=== PATIENT | female | born 1960 | race American Indian/Alaskan Native ===

== ENCOUNTER 2018-03-28 12:29 | Inpatient (IN) | payer OTHER ==
[2018-03-28] MEDS ORDERED: NACL 0.9% 1000 ML 1,000 ML IV ONE (14:00)
--- NOTE | 2018-03-28 14:00 | Emergency Department Report ---
Blank Doc - Documentation Documentation: Patient is a 57-year-old female who states that she's had 5 episodes of watery diarrhea since early this morning. Patient says diarrhea since slowed and there is no abdominal pain at this time however the patient states that she just feels weak and fatigued at this point. Brief physical exam patient has no bowel tenderness has normal bowel sounds. Patient blood pressure was borderline for this patient before should be moved to a treatment room 5 fluids and eletrolytes to be checked.
--- NOTE | 2018-03-28 14:35 | Emergency Department Report ---
ED N/V/D HPI - General Chief complaint: Nausea/Vomiting/Diarrhea Stated complaint: DIARRHEA Time Seen by Provider: 03/28/18 13:51 Source: patient, EMS Mode of arrival: Wheelchair Limitations: No Limitations - History of Present Illness Initial comments: Patient is a 57-year-old female who states that she's had 5 episodes of watery diarrhea since early this morning. Patient says diarrhea since slowed and there is no abdominal pain at this time however the patient states that she just feels weak and fatigued at this point. Brief physical exam patient has no bowel tenderness has normal bowel sounds. Denies any nausea or vomiting. Patient says she has lost 10 pounds for the last 1 month.. Patient family reported the patient is having personal issues at home and that she passed out and one of family member found her. Family members request placement for patient because they said that the family is that she does live alone with they are also very sick and cannot take care of her anymore. Patient is 57 and looks 20 years older than her stated age. Patient reports that she is having weakness but denies any pain. She denies any headache but reports dizziness MD complaint: diarrhea Onset/Timin -: days(s) Description of Diarrhea: water Associated Abdominal Pain: No Radiation: none Pain Scale: 0 Context: other (unknown) Associated Symptoms: weakness, other (dizziness). denies: myalgias, chest pain , cough, diaphoresis, fever/chills, headaches, loss of appetite, malaise, nausea /vomiting, rash, dysuria, shortness of breath, syncope - Related Data Home Medications Medication Instructions Recorded Confirmed Last Taken Hydrochlorothiazide [HCTZ] 12.5 mg PO 05/20/13 05/20/13 Unknown Previous Rx's Medication Instructions Recorded Last Taken Type Aspirin [Aspirin TAB] 325 mg PO QDAY #30 tablet 05/24/13 Unknown Rx Hydrochlorothiazide [HCTZ] 12.5 mg PO QDAY #30 capsule 05/24/13 Unknown Rx Lisinopril [Zestril TAB] 10 mg PO QDAY #30 tablet 05/24/13 Unknown Rx Simvastatin [Zocor TAB] 20 mg PO QHS #30 tablet 05/24/13 Unknown Rx Allergies Allergy/AdvReac Type Severity Reaction Status Date / Time No Known Allergies Allergy Unverified 05/20/13 15:37 ED Review of Systems ROS: Stated complaint: DIARRHEA Other details as noted in HPI Constitutional: weakness. denies: chills, fever Eyes: denies: eye pain, eye discharge, vision change ENT: denies: ear pain, throat pain, dental pain, hearing loss, epistaxis, congestion Respiratory: denies: cough, shortness of breath, SOB with exertion, SOB at rest , stridor, wheezing Cardiovascular: denies: chest pain, palpitations, dyspnea on exertion, edema, syncope, paroxysmal nocturnal dyspnea Gastrointestinal: diarrhea. denies: abdominal pain, nausea, vomiting, constipation, hematemesis, melena, hematochezia Genitourinary: denies: urgency, dysuria, frequency, hematuria, discharge Musculoskeletal: denies: back pain, joint swelling, arthralgia, myalgia Skin: denies: rash Neurological: weakness, other (dizziness). denies: headache, numbness, paresthesias, confusion, abnormal gait ED Past Medical Hx - Past Medical History Previous Medical History?: Yes Hx Hypertension: Yes Hx CVA: Yes (left leg weakness,uses walker) Hx Congestive Heart Failure: No Hx Diabetes: No Hx Asthma: No Hx COPD: No - Surgical History Past Surgical History?: No - Family History Family history: hypertension - Social History Smoking Status: Current Every Day Smoker Substance Use Type: None - Medications Home Medications: Home Medications Medication Instructions Recorded Confirmed Last Taken Type Hydrochlorothiazide [HCTZ] 12.5 mg PO 05/20/13 05/20/13 Unknown History Aspirin [Aspirin TAB] 325 mg PO QDAY #30 tablet 05/24/13 Unknown Rx Hydrochlorothiazide [HCTZ] 12.5 mg PO QDAY #30 capsule 05/24/13 Unknown Rx Lisinopril [Zestril TAB] 10 mg PO QDAY #30 tablet 05/24/13 Unknown Rx Simvastatin [Zocor TAB] 20 mg PO QHS #30 tablet 05/24/13 Unknown Rx ED Physical Exam - General Limitations: No Limitations General appearance: alert, in no apparent distress - Head Head exam: Present: atraumatic, normocephalic, normal inspection - Eye Eye exam: Present: normal appearance, PERRL, EOMI. Absent: nystagmus, periorbital swelling, periorbital tenderness Pupils: Present: normal accommodation - ENT ENT exam: Present: normal exam, normal orophraynx, mucous membranes dry, TM's normal bilaterally, normal external ear exam. Absent: mucous membranes moist - Neck Neck exam: Present: normal inspection, full ROM, other (no C-spine tenderness). Absent: tenderness, meningismus, lymphadenopathy, thyromegaly - Respiratory Respiratory exam: Present: normal lung sounds bilaterally. Absent: respiratory distress, chest wall tenderness - Cardiovascular Cardiovascular Exam: Present: regular rate, normal rhythm, normal heart sounds. Absent: systolic murmur, diastolic murmur - GI/Abdominal GI/Abdominal exam: Present: soft, normal bowel sounds. Absent: distended, tenderness, guarding, rebound, rigid, organomegaly, mass, bruit, pulsatile mass , hernia - Extremities Exam Extremities exam: Present: normal inspection, full ROM, normal capillary refill , other (No cce. + 2 pulses in all extremities, no neurovascular compromise). Absent: tenderness, pedal edema, joint swelling, calf tenderness - Back Exam Back exam: Present: normal inspection, full ROM, other (patient able to ambulate with assistance). Absent: tenderness, CVA tenderness (R), CVA tenderness (L), muscle spasm, paraspinal tenderness, vertebral tenderness, rash noted - Neurological Exam Neurological exam: Present: alert, oriented X3, abnormal gait (patient would have normal gait), reflexes normal. Absent: motor sensory deficit - Expanded Neurological Exam Expanded Neurological exam: Absent: innattentive, memory loss-remote event, memory loss- recent event, ataxia, receptive aphasia, expressive aphasia, total aphasia, tremor, protecting the airway, other Patient oriented to: Present: person, place, time Speech: Present: fluid speech Cranial nerves: EOM's Intact: Normal, Gag Reflex: Normal, Tongue Deviation: Normal, Nystagmus: Normal, Facial Sensation: Normal Cerebellar function: Romberg: Normal Upper motor neuron: Pronator Drift: Abnormal Right, Abnormal Left, Sensory Extinction: Normal Sensory exam: Upper Extremity Light Touch: Normal, Upper Extremity Temperature: Normal, UE 2 Point Discrimination: Normal, Lower Extremity Light Touch: Normal, Lower Extremity Temperature: Normal, LE 2 Point Discrimination: Normal Motor strength exam: RUE: 4, LUE: 4, RLE: 4, LLE: 4 DTR: bicep (R): 2+, bicep (L): 2+, tricep (R): 2+, tricep (L): 2+, knee (R): 2+ , knee (L): 2+, ankle (R): 2+, ankle (L): 2+ Best Eye Response (Lenox): (4) open spontaneously Best Motor Response (Lenox): (6) obeys commands Best Verbal Response (Lenox): (5) oriented Shana Total: 15 - Psychiatric Psychiatric exam: Present: normal affect, normal mood - Skin Skin exam: Present: warm, intact, other (skin turgor poor) ED Course Vital Signs 03/28/18 12:37 Temperature 97.9 F Pulse Rate 78 Respiratory 18 Rate Blood Pressure 101/65 O2 Sat by Pulse 99 Oximetry - Reevaluation(s) Reevaluation #1: 03/28/18 18:47 Patient given IV fluid normal saline 1 L and emergency room. Her lab work shows that she has increased white blood cell, shift into the left suggest bacterial, urinalysis positive for infection and cultures are pending. Chemistry with acute renal failure. Blood cultures and urine cultures sent and tendon patient was started D5 half normal saline at 125 an hour. Vital signs are stable, she is a febrile. She has had 2 diarrhea stools while in the emergency room. Patient and family reported that they cannot take care of her at home and she needs some more of the ago also field case manager came and spoke with family and patient and patient agree to go to a nursing home but there is no nursing home available at present. Patient will be admitted to the hospital for acute renal failure, dehydration, dizziness and urinary tract infection. Patient is very frail and weak and needed assistance tablet to the bathroom. Her other family member says that they are her children was very upset because the decision was made to send patient to homeless nursing home without discussing with them. They said that patient will not be going to homeless and that they will find somewhere for her to go. I discussed the patient and family that she will be admitted due to lab findings. She is in agreement.. Reevaluation #2: 03/28/18 19:39 Patient started on D5 half-normal saline. She is delayed and CT scan of the brain without contrast. She stably no acute distress. Reevaluation #3: 03/28/18 20:52 Patient to be admitted. I spoke with Dr. Sherice Rendon was the hospitalist who is assuming care of the patient. She is stable. ED Medical Decision Making - Lab Data Result diagrams: 03/28/18 15:07 03/28/18 15:07 Lab Results 03/28/18 03/28/18 03/28/18 Range/Units 14:43 15:07 15:07 WBC 15.8 H (4.5-11.0) K/mm3 RBC 5.13 H (3.65-5.03) M/mm3 Hgb 15.0 H (10.1-14.3) gm/dl Hct 45.2 H (30.3-42.9) % MCV 88 (79-97) fl MCH 29 (28-32) pg MCHC 33 (30-34) % RDW 14.8 (13.2-15.2) % Plt Count 227 (140-440) K/mm3 Add Manual Diff Complete Total Counted 100 Seg Neutrophils % C[employer] P[employer] Picker Seg Neuts % (Manual) 90.0 H (40.0-70.0) % Band Neutrophils % 0 % Lymphocytes % (Manual) 7.0 L (13.4-35.0) % Reactive Lymphs % (Man) 0 % Monocytes % (Manual) 3.0 (0.0-7.3) % Eosinophils % (Manual) 0 (0.0-4.3) % Basophils % (Manual) 0 (0.0-1.8) % Metamyelocytes % 0 % Myelocytes % 0 % Promyelocytes % 0 % Blast Cells % 0 % Nucleated RBC % Not Reportable Seg Neutrophils # Man 14.2 H (1.8-7.7) K/mm3 Band Neutrophils # 0.0 K/mm3 Lymphocytes # (Manual) 1.1 L (1.2-5.4) K/mm3 Abs React Lymphs (Man) 0.0 K/mm3 Monocytes # (Manual) 0.5 (0.0-0.8) K/mm3 Eosinophils # (Manual) 0.0 (0.0-0.4) K/mm3 Basophils # (Manual) 0.0 (0.0-0.1) K/mm3 Metamyelocytes # 0.0 K/mm3 Myelocytes # 0.0 K/mm3 Promyelocytes # 0.0 K/mm3 Blast Cells # 0.0 K/mm3 WBC Morphology Not Reportable Hypersegmented Neuts Not Reportable Hyposegmented Neuts Not Reportable Hypogranular Neuts Not Reportable Smudge Cells Not Reportable Toxic Granulation Not Reportable Toxic Vacuolation Not Reportable Dohle Bodies Not Reportable Pelger-Huet Anomaly Not Reportable Christina Rods Not Reportable Platelet Estimate Not Reportable Clumped Platelets Not Reportable Plt Clumps, EDTA Not Reportable Large Platelets Not Reportable Giant Platelets Not Reportable Platelet Satelliting Not Reportable Plt Morphology Comment Not Reportable RBC Morphology Normal Dimorphic RBCs Not Reportable Polychromasia Not Reportable Hypochromasia Not Reportable Poikilocytosis Not Reportable Anisocytosis Not Reportable Microcytosis Not Reportable Macrocytosis Not Reportable Spherocytes Not Reportable Pappenheimer Bodies Not Reportable Sickle Cells Not Reportable Target Cells Not Reportable Tear Drop Cells Not Reportable Ovalocytes Not Reportable Helmet Cells Not Reportable Tapia-Aledo Bodies Not Reportable [place] Rings Not Reportable Yen Cells Not Reportable Bite Cells Not Reportable Crenated Cell Not Reportable Elliptocytes Not Reportable Acanthocytes (Spur) Not Reportable Rouleaux Not Reportable Hemoglobin C Crystals Not Reportable Schistocytes Not Reportable Malaria parasites Not Reportable Dez Bodies Not Reportable Hem Pathologist Commnt No Sodium 141 (137-145) mmol/L Potassium 4.6 (3.6-5.0) mmol/L Chloride 102.5 (98-107) mmol/L Carbon Dioxide 20 L (22-30) mmol/L Anion Gap 23 mmol/L BUN 31 H (7-17) mg/dL Creatinine 1.5 H (0.7-1.2) mg/dL Estimated GFR 43 ml/min BUN/Creatinine Ratio 21 % Glucose 113 H (65-100) mg/dL Calcium 9.2 (8.4-10.2) mg/dL Total Bilirubin 0.40 (0.1-1.2) mg/dL AST 27 (5-40) units/L ALT 16 (7-56) units/L Alkaline Phosphatase 54 (35-129) units/L Total Protein 6.8 (6.3-8.2) g/dL Albumin 4.1 (3.9-5) g/dL Albumin/Globulin Ratio 1.5 % Lipase (13-60) units/L Urine Color Lisa (Yellow) Urine Turbidity Cloudy (Clear) Urine pH 5.0 (5.0-7.0) Ur Specific Cl[place]son 1.017 (1.003-1.030) Urine Protein 30 mg/dl (Negative) mg/dL Urine Glucose (UA) Neg (Negative) mg/dL Urine Ketones Neg (Negative) mg/dL Urine Blood Sm (Negative) Urine Nitrite Neg (Negative) Urine Bilirubin Neg (Negative) Urine Urobilinogen 2.0 (<2.0) mg/dL Ur Leukocyte Esterase Sm (Negative) Urine WBC (Auto) 13.0 H (0.0-6.0) /HPF Urine RBC (Auto) 15.0 (0.0-6.0) /HPF U Epithel Cells (Auto) 2.0 (0-13.0) /HPF Urine Bacteria (Auto) 3+ (Negative) /HPF Hyaline Casts 1 /LPF Urine Mucus 1+ /HPF 03/28/18 Range/Units 15:07 WBC (4.5-11.0) K/mm3 RBC (3.65-5.03) M/mm3 Hgb (10.1-14.3) gm/dl Hct (30.3-42.9) % MCV (79-97) fl MCH (28-32) pg MCHC (30-34) % RDW (13.2-15.2) % Plt Count (140-440) K/mm3 Add Manual Diff Total Counted Seg Neutrophils % Seg Neuts % (Manual) (40.0-70.0) % Band Neutrophils % % Lymphocytes % (Manual) (13.4-35.0) % Reactive Lymphs % (Man) % Monocytes % (Manual) (0.0-7.3) % Eosinophils % (Manual) (0.0-4.3) % Basophils % (Manual) (0.0-1.8) % Metamyelocytes % % Myelocytes % % Promyelocytes % % Blast Cells % % Nucleated RBC % Seg Neutrophils # Man (1.8-7.7) K/mm3 Band Neutrophils # K/mm3 Lymphocytes # (Manual) (1.2-5.4) K/mm3 Abs React Lymphs (Man) K/mm3 Monocytes # (Manual) (0.0-0.8) K/mm3 Eosinophils # (Manual) (0.0-0.4) K/mm3 Basophils # (Manual) (0.0-0.1) K/mm3 Metamyelocytes # K/mm3 Myelocytes # K/mm3 Promyelocytes # K/mm3 Blast Cells # K/mm3 WBC Morphology Hypersegmented Neuts Hyposegmented Neuts Hypogranular Neuts Smudge Cells Toxic Granulation Toxic Vacuolation Dohle Bodies Pelger-Huet Anomaly Christina Rods Platelet Estimate Clumped Platelets Plt Clumps, EDTA Large Platelets Giant Platelets Platelet Satelliting Plt Morphology Comment RBC Morphology Dimorphic RBCs Polychromasia Hypochromasia Poikilocytosis Anisocytosis Microcytosis Macrocytosis Spherocytes Pappenheimer Bodies Sickle Cells Target Cells Tear Drop Cells Ovalocytes Helmet Cells Tapia-Aledo Bodies [place] Rings [place] Cells Bite Cells Crenated Cell Elliptocytes Acanthocytes (Spur) Rouleaux Hemoglobin C Crystals Schistocytes Malaria parasites Dez Bodies Hem Pathologist Commnt Sodium (137-145) mmol/L Potassium (3.6-5.0) mmol/L Chloride (98-107) mmol/L Carbon Dioxide (22-30) mmol/L Anion Gap mmol/L BUN (7-17) mg/dL Creatinine (0.7-1.2) mg/dL Estimated GFR ml/min BUN/Creatinine Ratio % Glucose (65-100) mg/dL Calcium (8.4-10.2) mg/dL Total Bilirubin (0.1-1.2) mg/dL AST (5-40) units/L ALT (7-56) units/L Alkaline Phosphatase (35-129) units/L Total Protein (6.3-8.2) g/dL Albumin (3.9-5) g/dL Albumin/Globulin Ratio % Lipase 24 (13-60) units/L Urine Color (Yellow) Urine Turbidity (Clear) Urine pH (5.0-7.0) Ur Specific Cl[place] (1.003-1.030) Urine Protein (Negative) mg/dL Urine Glucose (UA) (Negative) mg/dL Urine Ketones (Negative) mg/dL Urine Blood (Negative) Urine Nitrite (Negative) Urine Bilirubin (Negative) Urine Urobilinogen (<2.0) mg/dL Ur Leukocyte Esterase (Negative) Urine WBC (Auto) (0.0-6.0) /HPF Urine RBC (Auto) (0.0-6.0) /HPF U Epithel Cells (Auto) (0-13.0) /HPF Urine Bacteria (Auto) (Negative) /HPF Hyaline Casts /LPF Urine Mucus /HPF Urine culture sent Blood culture sent - EKG Data -: EKG Interpreted by Me (by Dr. Bel Miller) EKG shows normal: sinus rhythm Rate: normal (84 bpm) - EKG Data Interpretation: no acute changes, normal EKG - Radiology Data Radiology results: report reviewed CT scan of head and brain without contrast dictated by radiologist's report reviewed by myself. There are no acute findings. Skull and scalp are normal. Sinuses are normal. Ventricles and subarachnoid spaces with prominent consistent with cerebral as 3 slightly advanced for patient age. She also has old lacunar infarct involving bilateral basal ganglia and bilateral parietal periventricular white matter. An acute intra-axial or extra-axial hemorrhage is not identified no mass effect. Moderate to severe degree nonspecific white matter hypodensity Patient: TAIWO ARCEO MR#: [id number] : 1960 Acct:[id number] Age/Sex: 57 / F ADM Date: 03/28/18 Loc: ED Attending Dr: Ordering Physician: JEANNINE MARTINEZ Date of Service: 03/28/18 Procedure(s): CT head/brain wo con Accession Number(s): [id number] cc: JEANNINE MARTINEZ FINAL REPORT PROCEDURE: CT HEAD/BRAIN WO CON TECHNIQUE: Computerized tomography of the head was performed without contrast material. HISTORY: dizziness COMPARISON: No prior studies are available for comparison. FINDINGS: Skull and scalp: Normal. Paranasal sinuses: Normal. Ventricles and subarachnoid spaces: Are prominent consistent with cerebral atrophy slightly advanced for patient's age.. Cerebrum: Old lacunar infarcts are noted involving bilateral basal ganglia and bilateral parietal periventricular white matter. An acute intra-axial or extra-axial hemorrhage is not identified. There is no mass effect. Moderate to severe degree nonspecific cerebral white matter hypodensity is noted. The. Cerebellum and brainstem: Old lacunar infarcts are noted involving naeem and right cerebellar hemisphere... Vasculature: Atherosclerotic calcification is noted involving bilateral internal carotid and vertebral arteries.. Comments: None. IMPRESSION: No acute intracranial abnormality Cerebral atrophy advanced for patient's age Old lacunar infarcts bilateral basal ganglia, bilateral parietal periventricular white matter, naeem and right cerebellar hemisphere. 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 A neuro degenerative disorder cannot be excluded. Transcribed By: [facility] Dictated By: ELDON RUSS Electronically Authenticated By: ELDON RUSS Signed Date/Time: 03/28/182012 DD/ 12 TD/TT: 03/28/182012 - Medical Decision Making This is a 57-year-old female that was brought to the hospital by her family reports that she had diarrhea 5 and that she was found by family member in the bathroom passed out. Family member which is her cousin says that the patient is living at home with other family members are too sick to take here for so they wanted her to be placed in a [facility]. hotel service manager called and saw patient's and it was decided the patient will go to nursing home but patient other family member came in and sat because they said nobody spoke to them about it and she is not B going to nursing home. Patient denies any nausea or vomiting and she reports that she started feeling dizzy and weakness. She has a history of CVA. Patient denies any shortness of breath. Denies any numbness or tingling to extremities. Denies any neck pain or stiffness. Patient was screened by Dr. Miller and orders placed. I examined patient and she is frail. She is neurologically intact and her neck and back exam is normal. Patient lungs and heart are normal. He had lab work done which shows that she had CBC which showed elevated white count which shift into the left, urinalysis positive for white cell, leukocyte esterase and bacteria. Her chemistry is positive for acute renal failure otherwise stable. Lipase are normal. Blood cultures sent and urine culture sent. Patient received 1 L of normal saline emergency room. She was started on Rocephin 1 g IM and additional D5 half-normal saline at 125 mL an hour. She had 2 loose stool while she was in an emergency room. Patient and family given results of CBC, CMP, urinalysis, diagnosis and treatment plan and the patient will be admitted for acute renal failure, elevated white count, urinary tract infection, dehydration and dizziness and weakness. Patient had a CT scan of the head and brain that was dictated by radiologist report reviewed by myself. She has old infarct but no acute abdomen with the end this is also related to patient and family. Assessment/plan dehydration-vital signs are stable she is afebrile and patient is on IV fluid. Diarrhea-she had 2 episodes of diarrhea and emergency room. She is tolerating oral liquids well. D5 half normal saline started at 1 25 mL an hour Acute cystitis-patient started on Rocephin 1 g IV Leukocytosis-on antibiotic syncope and dizziness-CT scan of the head and brain showed no acute processes but old infarct. Acute renal insufficiency -with BUN and creatinine elevated-patient received an IV fluid and she is to be admitted by hospitalist. I spoke with Dr. Sherice Rendon who accepted patient. Patient is stable at present and her family that her side. She is aware of decision to admit and she agrees with this. Family to speak with case management tomorrow regarding patient disposition when she leaves hospital. Family decided that they will take the patient in. These are different family members from the ones that were eating earlier and spoke the case management. Patient is stable - Differential Diagnosis intracranial versus extracranial abnormality, dehydration, bacterial infect Critical care attestation.: If time is entered above; I have spent that time in minutes in the direct care of this critically ill patient, excluding procedure time. ED Disposition Clinical Impression: Acute renal insufficiency, Dizziness, Weakness, Dehydration Diarrhea Qualifiers: Diarrhea type: unspecified type Qualified Code(s): R19.7 - Diarrhea, unspecified Leukocytosis Qualifiers: Leukocytosis type: unspecified Qualified Code(s): D72.829 - Elevated white blood cell count, unspecified Acute cystitis Qualifiers: Hematuria presence: without hematuria Qualified Code(s): N30.00 - Acute cystitis without hematuria Syncope Qualifiers: Syncope type: unspecified Qualified Code(s): R55 - Syncope and collapse Disposition: -09 OP ADMIT IP TO THIS HOSP Is pt being admited?: No Condition: Stable Instructions: Syncope (ED) Referrals: PRIMARY CARE, [Primary Care Provider] - 3-5 Days
[2018-03-28 14:58] LABS: Bacteria,Urine 3+ /HPF (Negative); Bilirubin,Urine NEG (Negative); Blood,Urine SM (Negative); Color,Urine Amber (Yellow); Hyaline Casts,Urine 1 /LPF; Mucus,Urine 1+ /HPF
[2018-03-28 15:28] LABS: Hematocrit 45.2 % (30.3-42.9); Mean Corpuscular HGB Conc 33 % (30-34); Mean Corpuscular Hemoglobin 29 pg (28-32); Mean Corpuscular Volume 88 fl (79-97); Platelet Count 227 K/mm3 (140-440); Red Blood Count 5.13 M/mm3 (3.65-5.03); Red Cell Distribution Width 14.8 % (13.2-15.2)
[2018-03-28 15:57] LABS: Albumin 4.1 g/dL (3.9-5); Calcium 9.2 mg/dL (8.4-10.2)
[2018-03-28 16:07] LABS: Total Cells Counted 100
[2018-03-28 16:08] LABS: Basophils % (Manual) 0 % (0.0-1.8); Eosinophils % (Manual) 0 % (0.0-4.3); RBC Morphology Normal
[2018-03-28] MEDS ORDERED: D5/0.45NS 1,000 ML IV SCH (17:00)
[2018-03-28] MEDS ORDERED: ROCEPHIN/NS 1 GM/50 ML 1 GM/50 ML BAG IV ONE (19:00)
--- NOTE | 2018-03-28 20:20 | Cat Scan Report ---
FINAL REPORT PROCEDURE: CT HEAD/BRAIN WO CON TECHNIQUE: Computerized tomography of the head was performed without contrast material. HISTORY: dizziness COMPARISON: No prior studies are available for comparison. FINDINGS: Skull and scalp: Normal. Paranasal sinuses: Normal. Ventricles and subarachnoid spaces: Are prominent consistent with cerebral atrophy slightly advanced for patient's age.. Cerebrum: Old lacunar infarcts are noted involving bilateral basal ganglia and bilateral parietal periventricular white matter. An acute intra-axial or extra-axial hemorrhage is not identified. There is no mass effect. Moderate to severe degree nonspecific cerebral white matter hypodensity is noted. The. Cerebellum and brainstem: Old lacunar infarcts are noted involving naeem and right cerebellar hemisphere... Vasculature: Atherosclerotic calcification is noted involving bilateral internal carotid and vertebral arteries.. Comments: None. IMPRESSION: No acute intracranial abnormality Cerebral atrophy advanced for patient's age Old lacunar infarcts bilateral basal ganglia, bilateral parietal periventricular white matter, naeem and right cerebellar hemisphere. 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 A neuro degenerative disorder cannot be excluded.
[2018-03-28] MEDS: NACL 0.45% 1000 ML 1,000 ML IV SCH (20:40)
[2018-03-28] MEDS ORDERED: SODIUM CHLORIDE FLUSH SYRINGE 10 ML IV PRN (20:47)
[2018-03-28] MEDS ORDERED: TYLENOL PO PRN (20:47)
[2018-03-28] MEDS ORDERED: ZOFRAN IV PRN (20:47)
--- NOTE | 2018-03-28 20:52 | History and Physical Report ---
History of Present Illness Date of examination: 03/28/18 History of present illness: 57-year-old woman with a history of hypertension, hyperlipidemia comes emergency room because today while she was having a bowel movement she had a syncopal episode, she is unclear how long she passed out. Patient complains of having diarrhea for 2 weeks, 5 times a day. Denies fever, chills, recent antibiotic, travel, sick contacts Review of systems Constitutional: no weight loss, chills, fever Ears, eyes, nose, mouth and throat: no nasal congestion, no nasal discharge, no sinus pressure, no vision change, no red eye. Neck: No neck pain or rigidity. Cardiovascular: no chest pain, palpitations Respiratory: no cough, shortness of breath Gastrointestinal: no abdominal pain hematochezia Genitourinary : + frequency , no hematuria Musculoskeletal: no joint swelling or muscle ache Integumentary: no rash, no pruritis Neurological: no parathesias, no numbness, no focal weakness Endocrine: no cold or heat intolerance, no polyuria or polydipsia Hematologic/Lymphatic: no easy bruising, no easy bleeding, no gland swelling Allergic/Immunologic: no urticaria, no angioedema. PAST MEDICAL HISTORY: hypertension, hyperlipidemia PAST SURGICAL HISTORY: None SOCIAL HISTORY: No alcohol, no drugs, smoke 2 packs a day FAMILY HISTORY: Hypertension Medications and Allergies Allergies Allergy/AdvReac Type Severity Reaction Status Date / Time No Known Allergies Allergy Unverified 05/20/13 15:37 Home Medications Medication Instructions Recorded Confirmed Last Taken Type Hydrochlorothiazide [HCTZ] 12.5 mg PO 05/20/13 05/20/13 Unknown History Aspirin [Aspirin TAB] 325 mg PO QDAY #30 tablet 05/24/13 Unknown Rx Hydrochlorothiazide [HCTZ] 12.5 mg PO QDAY #30 capsule 05/24/13 Unknown Rx Lisinopril [Zestril TAB] 10 mg PO QDAY #30 tablet 05/24/13 Unknown Rx Simvastatin [Zocor TAB] 20 mg PO QHS #30 tablet 05/24/13 Unknown Rx Active Meds: Active Medications Acetaminophen (Tylenol) 650 mg PO Q4H PRN PRN Reason: Pain MILD(1-3)/Fever >100.5/ROSE Enoxaparin Sodium (Lovenox) 30 mg SUB-Q QDAY FREYA Dextrose/Sodium Chloride (D5/0.45ns) 1,000 mls @ 125 mls/hr IV DIRECT FREYA Sodium Chloride (Nacl 0.45% 1000 Ml) 1,000 mls @ 125 mls/hr IV DIRECT FREYA Ondansetron HCl (Zofran) 4 mg IV Q8H PRN PRN Reason: Nausea And Vomiting Sodium Chloride (Sodium Chloride Flush Syringe 10 Ml) 10 ml IV BID FREYA Sodium Chloride (Sodium Chloride Flush Syringe 10 Ml) 10 ml IV PRN PRN PRN Reason: LINE FLUSH Exam - Physical Exam Narrative exam: Gen. appearance: Patient lying in bed, no apparent distress HEENT: Normocephalic, atraumatic, pupils equally round and reactive to light, extraocular movement intact, and no sclericterus,. No JVD or thyromegaly or nodule,neck supple, no carotid bruit ,mucous membranes dry, no exudate or erythema Heart: S1, S2, regular rate and rhythm Lungs: Clear bilaterally, breathing comfortable Abdomen: Positive bowel sounds, non-tender, nondistended, no organomegaly Extremity:no edema cyanosis, clubbing Skin: no rash, dry, warm Neuro: Oriented 3, cranial nerves II-12 intact, speech is fluent, motor and sensory intact - Constitutional Vitals: Temp Pulse Resp BP Pulse Ox 97.9 F 78 18 101/65 99 03/28/18 12:37 03/28/18 12:37 03/28/18 12:37 03/28/18 12:37 03/28/18 12:37 Results - Labs CBC & Chem 7: 03/28/18 15:07 03/28/18 15:07 Labs: Abnormal lab results 03/28/18 03/28/18 03/28/18 Range/Units 14:43 15:07 15:07 WBC 15.8 H (4.5-11.0) K/mm3 RBC 5.13 H (3.65-5.03) M/mm3 Hgb 15.0 H (10.1-14.3) gm/dl Hct 45.2 H (30.3-42.9) % Seg Neuts % (Manual) 90.0 H (40.0-70.0) % Lymphocytes % (Manual) 7.0 L (13.4-35.0) % Seg Neutrophils # Man 14.2 H (1.8-7.7) K/mm3 Lymphocytes # (Manual) 1.1 L (1.2-5.4) K/mm3 Carbon Dioxide 20 L (22-30) mmol/L BUN 31 H (7-17) mg/dL Creatinine 1.5 H (0.7-1.2) mg/dL Glucose 113 H (65-100) mg/dL Urine WBC (Auto) 13.0 H (0.0-6.0) /HPF - Imaging and Cardiology EKG: report reviewed CT Scan - head: report reviewed Assessment and Plan Assessment Acute renal failure secondary to diarrhea Syncope most likely vasovagal Diarrhea UTI History of hypertension now relative hypotension Hyperlipidemia Plan Admit to medicine Start IV fluids, IV Rocephin Obtain stool culture, urine culture Cardiac enzymes, carotid Doppler, echo, d-dimer,cxr DVT prophylaxis] Addendum elevated d-dimer, check v/q
[2018-03-28 21:31] LABS: Creatine Kinase MB 1.3 ng/mL (0.0-4.0)
--- NOTE | 2018-03-28 22:37 | XRay Report ---
FINAL REPORT EXAM: XR CHEST 1V AP HISTORY: syncope TECHNIQUE: AP portable view of the chest PRIORS: None. FINDINGS: Lines, tubes, and devices: N/A Lungs and pleura: Trachea is normal in position. Lungs are clear of infiltrate, pleural effusion, vascular congestion, or pneumothorax. Cardiomediastinal silhouette: Cardiac and mediastinal silhouettes are unremarkable. Other: Bony structures are intact. IMPRESSION: No acute cardiopulmonary process seen.
[2018-03-28] MEDS: PRAVACHOL PO SCH (22:41)
[2018-03-28] MEDS: SODIUM CHLORIDE FLUSH SYRINGE 10 ML IV SCH (22:41)
[2018-03-29 03:15] LABS: Basophils # (Auto) 0.1 K/mm3 (0.0-0.1); Basophils % (Auto) 0.6 % (0.0-1.8); Eosinophils # (Auto) 0.1 K/mm3 (0.0-0.4); Eosinophils % (Auto) 0.8 % (0.0-4.3); Hematocrit 39.4 % (30.3-42.9); Hemoglobin 13.2 gm/dl (10.1-14.3); Lymphocytes % (Auto) 18.7 % (13.4-35.0); Mean Corpuscular HGB Conc 34 % (30-34); Mean Corpuscular Hemoglobin 29 pg (28-32); Mean Corpuscular Volume 87 fl (79-97); Monocytes # (Auto) 0.6 K/mm3 (0.0-0.8); Monocytes % (Auto) 5.3 % (0.0-7.3); Platelet Count 183 K/mm3 (140-440); Red Blood Count 4.51 M/mm3 (3.65-5.03); Red Cell Distribution Width 14.7 % (13.2-15.2)
[2018-03-29 03:33] LABS: Creatine Kinase MB 3.2 ng/mL (0.0-4.0)
[2018-03-29 03:36] LABS: BUN/Creatinine Ratio 25; Blood Urea Nitrogen 28 mg/dL (7-17); Calcium 8.9 mg/dL (8.4-10.2); Hemolysis Index 82
[2018-03-29] MEDS: NACL 0.45% 1000 ML 1,000 ML IV SCH (05:48)
[2018-03-29] MEDS: LOVENOX SUB-Q SCH (10:47)
[2018-03-29] MEDS: ASPIRIN PO SCH (10:48)
[2018-03-29] MEDS: ROCEPHIN/NS 1 GM/50 ML 1 GM/50 ML BAG IV SCH (10:49)
--- NOTE | 2018-03-29 12:31 | Nuclear Medicine Report ---
LUNG SCAN, VENTILATION AND PERFUSION: History: Evaluate for PE, shortness of breath. Technique: 5mci of Tc99m MAA was infused for the perfusion images. 15mci XE 133 gas was inhaled for the ventilatory images. Correlation is made with a chest x-ray dated 03/28/18. Findings: Inhalation of Xenon gas demonstrates a normal distribution of the activity throughout both lungs. The wash out phases show mild retention of the radiotracer bilaterally consistent with mild COPD. After injection of Technetium 99m macroaggregated albumin gamma camera imaging of the lungs in multiple projections demonstrates normal pulmonary contours with a homogeneous distribution of activity. No focal areas of perfusion deficiency are identified. IMPRESSION: Low probability for pulmonary embolus. Findings compatible with COPD.
[2018-03-29] MEDS ORDERED: K-DUR PO ONE (12:54)
[2018-03-29] MEDS: SODIUM CHLORIDE FLUSH SYRINGE 10 ML IV SCH ×2 (13:27→21:53)
--- NOTE | 2018-03-29 16:41 | Discharge Summary ---
Providers - Providers Date of Admission: 03/28/18 20:47 Date of discharge: 03/29/18 Attending physician: ARIANNA HALL 03/28/18 15:43 Consult to Case Management [CONS] Routine Services Needed at Discharge: School Based Therapist Home Health Services Notified:: Torri Was contact made?: Yes If yes, spoke with:: Torri Time called:: 15:30 Primary care physician: RECREATION PROGRAMMER Hospitalization Condition: Fair Disposition: DC-01 TO HOME OR SELFCARE Core Measure Documentation - Palliative Care Palliative Care/ Comfort Measures: Not Applicable - Core Measures Any of the following diagnoses?: none Exam - Constitutional Vitals: Temp Pulse Resp BP Pulse Ox 97.8 F 63 16 154/93 99 03/29/18 15:58 03/29/18 15:58 03/29/18 15:58 03/29/18 15:58 03/29/18 15:58 Plan Activity: no restrictions Diet: low fat, low cholesterol, low salt Additional Instructions: 1. Follow up with PCP or [facility] in 1 week Follow up with: PRIMARY MD BEBE [Primary Care Provider] - 3-5 Days
--- NOTE | 2018-03-29 19:07 | Progress Note ---
Assessment and Plan Assessment and plan: Acute gastroenteritis. iv fluids Syncope due to dehydration. Urinary tract infection. started on Ceftriaxone Dehydration. started on iv fluids Hypertension. BP stable on Lisinopril FULL CODE STATUS History Interval history: diarrhea passed out at home Hospitalist Physical - Constitutional Vitals: Temp Pulse Resp BP Pulse Ox 97.8 F 63 16 154/93 99 03/29/18 15:58 03/29/18 15:58 03/29/18 15:58 03/29/18 15:58 03/29/18 15:58 General appearance: Present: no acute distress - EENT Eyes: Present: PERRL ENT: hearing intact - Neck Neck: Present: supple - Respiratory Respiratory effort: normal Respiratory: bilateral: CTA, negative: diminished, rales, rhonchi, wheezing - Cardiovascular Rhythm: regular Heart Sounds: Present: S1 & S2 (S1 and S2 reg, no murmurs, rubs or gallop) - Extremities Extremities: No edema - Abdominal General gastrointestinal: soft, non-tender, non-distended, normal bowel sounds - Integumentary Integumentary: Present: clear, warm, dry Results - Labs CBC & Chem 7: 03/29/18 02:54 03/29/18 02:54 Labs: Laboratory Last Values WBC 11.0 K/mm3 (4.5-11.0) 03/29/18 02:54 RBC 4.51 M/mm3 (3.65-5.03) 03/29/18 02:54 Hgb 13.2 gm/dl (10.1-14.3) 03/29/18 02:54 Hct 39.4 % (30.3-42.9) 03/29/18 02:54 MCV 87 fl (79-97) 03/29/18 02:54 MCH 29 pg (28-32) 03/29/18 02:54 MCHC 34 % (30-34) 03/29/18 02:54 RDW 14.7 % (13.2-15.2) 03/29/18 02:54 Plt Count 183 K/mm3 (140-440) 03/29/18 02:54 Lymph % (Auto) 18.7 % (13.4-35.0) 03/29/18 02:54 [place] % (Auto) 5.3 % (0.0-7.3) 03/29/18 02:54 Eos % (Auto) 0.8 % (0.0-4.3) 03/29/18 02:54 Baso % (Auto) 0.6 % (0.0-1.8) 03/29/18 02:54 Lymph # 2.0 K/mm3 (1.2-5.4) 03/29/18 02:54 [place] # 0.6 K/mm3 (0.0-0.8) 03/29/18 02:54 Eos # 0.1 K/mm3 (0.0-0.4) 03/29/18 02:54 Baso # 0.1 K/mm3 (0.0-0.1) 03/29/18 02:54 Add Manual Diff Complete 03/28/18 15:07 Total Counted 100 03/28/18 15:07 Seg Neutrophils % 74.6 % (40.0-70.0) H 03/29/18 02:54 Seg Neuts % (Manual) 90.0 % (40.0-70.0) H 03/28/18 15:07 Band Neutrophils % 0 % 03/28/18 15:07 Lymphocytes % (Manual) 7.0 % (13.4-35.0) L 03/28/18 15:07 Reactive Lymphs % (Man) 0 % 03/28/18 15:07 Monocytes % (Manual) 3.0 % (0.0-7.3) 03/28/18 15:07 Eosinophils % (Manual) 0 % (0.0-4.3) 03/28/18 15:07 Basophils % (Manual) 0 % (0.0-1.8) 03/28/18 15:07 Metamyelocytes % 0 % 03/28/18 15:07 Myelocytes % 0 % 03/28/18 15:07 Promyelocytes % 0 % 03/28/18 15:07 Blast Cells % 0 % 03/28/18 15:07 Nucleated RBC % Not Reportable 03/28/18 15:07 Seg Neutrophils # 8.2 K/mm3 (1.8-7.7) H 03/29/18 02:54 Seg Neutrophils # Man 14.2 K/mm3 (1.8-7.7) H 03/28/18 15:07 Band Neutrophils # 0.0 K/mm3 03/28/18 15:07 Lymphocytes # (Manual) 1.1 K/mm3 (1.2-5.4) L 03/28/18 15:07 Abs React Lymphs (Man) 0.0 K/mm3 03/28/18 15:07 Monocytes # (Manual) 0.5 K/mm3 (0.0-0.8) 03/28/18 15:07 Eosinophils # (Manual) 0.0 K/mm3 (0.0-0.4) 03/28/18 15:07 Basophils # (Manual) 0.0 K/mm3 (0.0-0.1) 03/28/18 15:07 Metamyelocytes # 0.0 K/mm3 03/28/18 15:07 Myelocytes # 0.0 K/mm3 03/28/18 15:07 Promyelocytes # 0.0 K/mm3 03/28/18 15:07 Blast Cells # 0.0 K/mm3 03/28/18 15:07 WBC Morphology Not Reportable 03/28/18 15:07 Hypersegmented Neuts Not Reportable 03/28/18 15:07 Hyposegmented Neuts Not Reportable 03/28/18 15:07 Hypogranular Neuts Not Reportable 03/28/18 15:07 Smudge Cells Not Reportable 03/28/18 15:07 Toxic Granulation Not Reportable 03/28/18 15:07 Toxic Vacuolation Not Reportable 03/28/18 15:07 Dohle Bodies Not Reportable 03/28/18 15:07 Pel[place]-Huet Anomaly Not Reportable 03/28/18 15:07 Christina Rods Not Reportable 03/28/18 15:07 Platelet Estimate Not Reportable 03/28/18 15:07 Clumped Platelets Not Reportable 03/28/18 15:07 Plt Clumps, EDTA Not Reportable 03/28/18 15:07 Large Platelets Not Reportable 03/28/18 15:07 Giant Platelets Not Reportable 03/28/18 15:07 Platelet Satelliting Not Reportable 03/28/18 15:07 Plt Morphology Comment Not Reportable 03/28/18 15:07 RBC Morphology Normal 03/28/18 15:07 Dimorphic RBCs Not Reportable 03/28/18 15:07 Polychromasia Not Reportable 03/28/18 15:07 Hypochromasia Not Reportable 03/28/18 15:07 Poikilocytosis Not Reportable 03/28/18 15:07 Anisocytosis Not Reportable 03/28/18 15:07 Microcytosis Not Reportable 03/28/18 15:07 Macrocytosis Not Reportable 03/28/18 15:07 Spherocytes Not Reportable 03/28/18 15:07 Pappenheimer Bodies Not Reportable 03/28/18 15:07 Sickle Cells Not Reportable 03/28/18 15:07 Target Cells Not Reportable 03/28/18 15:07 Tear Drop Cells Not Reportable 03/28/18 15:07 Ovalocytes Not Reportable 03/28/18 15:07 Helmet Cells Not Reportable 03/28/18 15:07 [place] Bodies Not Reportable 03/28/18 15:07 Likely Rings Not Reportable 03/28/18 15:07 Yen Cells Not Reportable 03/28/18 15:07 Bite Cells Not Reportable 03/28/18 15:07 Crenated Cell Not Reportable 03/28/18 15:07 Elliptocytes Not Reportable 03/28/18 15:07 Acanthocytes (Spur) Not Reportable 03/28/18 15:07 Rouleaux Not Reportable 03/28/18 15:07 Hemoglobin C Crystals Not Reportable 03/28/18 15:07 Schistocytes Not Reportable 03/28/18 15:07 Malaria parasites Not Reportable 03/28/18 15:07 Dez Bodies Not Reportable 03/28/18 15:07 Hem Pathologist Commnt No 03/28/18 15:07 D-Dimer 2677.90 ng/mlDDU (0-234) H 03/28/18 20:54 Sodium 141 mmol/L (137-145) 03/29/18 02:54 Potassium 3.5 mmol/L (3.6-5.0) L D 03/29/18 02:54 Chloride 103.9 mmol/L (98-107) 03/29/18 02:54 Carbon Dioxide 23 mmol/L (22-30) 03/29/18 02:54 Anion Gap 18 mmol/L 03/29/18 02:54 BUN 28 mg/dL (7-17) H 03/29/18 02:54 Creatinine 1.1 mg/dL (0.7-1.2) 03/29/18 02:54 Estimated GFR > 60 ml/min 03/29/18 02:54 BUN/Creatinine Ratio 25 % 03/29/18 02:54 Glucose 104 mg/dL (65-100) H 03/29/18 02:54 Calcium 8.9 mg/dL (8.4-10.2) 03/29/18 02:54 Total Bilirubin 0.40 mg/dL (0.1-1.2) 03/28/18 15:07 AST 27 units/L (5-40) 03/28/18 15:07 ALT 16 units/L (7-56) 03/28/18 15:07 Alkaline Phosphatase 54 units/L (35-129) 03/28/18 15:07 Total Creatine Kinase 326 units/L (30-135) H 03/29/18 02:54 CK-MB (CK-2) 3.2 ng/mL (0.0-4.0) 03/29/18 02:54 CK-MB (CK-2) Rel Index 1.5 (0-4) 03/28/18 20:54 Troponin T < 0.010 ng/mL (0.00-0.029) 03/29/18 02:54 Total Protein 6.8 g/dL (6.3-8.2) 03/28/18 15:07 Albumin 4.1 g/dL (3.9-5) 03/28/18 15:07 Albumin/Globulin Ratio 1.5 % 03/28/18 15:07 Lipase 24 units/L (13-60) 03/28/18 15:07 Urine Color Lisa (Yellow) 03/28/18 14:43 Urine Turbidity Cloudy (Clear) 03/28/18 14:43 Urine pH 5.0 (5.0-7.0) 03/28/18 14:43 Ur Specific [place] 1.017 (1.003-1.030) 03/28/18 14:43 Urine Protein 30 mg/dl mg/dL (Negative) 03/28/18 14:43 Urine Glucose (UA) Neg mg/dL (Negative) 03/28/18 14:43 Urine Ketones Neg mg/dL (Negative) 03/28/18 14:43 Urine Blood Sm (Negative) 03/28/18 14:43 Urine Nitrite Neg (Negative) 03/28/18 14:43 Urine Bilirubin Neg (Negative) 03/28/18 14:43 Urine Urobilinogen 2.0 mg/dL (<2.0) 03/28/18 14:43 Ur Leukocyte Esterase Sm (Negative) 03/28/18 14:43 Urine WBC (Auto) 13.0 /HPF (0.0-6.0) H 03/28/18 14:43 Urine RBC (Auto) 15.0 /HPF (0.0-6.0) 03/28/18 14:43 U Epithel Cells (Auto) 2.0 /HPF (0-13.0) 03/28/18 14:43 Urine Bacteria (Auto) 3+ /HPF (Negative) 03/28/18 14:43 Hyaline Casts 1 /LPF 03/28/18 14:43 Urine Mucus 1+ /HPF 03/28/18 14:43
[2018-03-29] MEDS: PRAVACHOL PO SCH (21:52)
[2018-03-29] MEDS ORDERED: APRESOLINE IV PRN (23:55)
[2018-03-30 07:25] VITALS: BP 130/80
[2018-03-30] MEDS: LOVENOX SUB-Q SCH (09:26)
[2018-03-30] MEDS: ASPIRIN PO SCH (09:26)
[2018-03-30] MEDS: SODIUM CHLORIDE FLUSH SYRINGE 10 ML IV SCH (09:28)
[2018-03-30] MEDS: ROCEPHIN/NS 1 GM/50 ML 1 GM/50 ML BAG IV SCH (10:22)
--- NOTE | 2018-03-30 12:20 | Event Note ---
Date: 03/30/18 Patient stable to dc. Was discharged yesterday but did not go because was homeless. Going today.
== END 2018-03-30 13:20 | disposition home or self-care (01) | DRG 683 ==
LOC: ED 12:29 → 4A 20:47
PROVIDERS: ADMIT Internal Medicine; ATTEND Internal Medicine
DX: N17.9 Acute kidney failure, unspecified (principal); I69.354 Hemiplegia and hemiparesis following cerebral infarction affecting left non-dominant side; N30.00 Acute cystitis without hematuria; R55 Syncope and collapse; I10 Essential (primary) hypertension; F17.210 Nicotine dependence, cigarettes, uncomplicated; E86.0 Dehydration; E78.5 Hyperlipidemia, unspecified; K52.9 Noninfective gastroenteritis and colitis, unspecified; Z59.0 Homelessness; Z79.82 Long term (current) use of aspirin; Z82.49 Family history of ischemic heart disease and other diseases of the circulatory system
CPT/HCPCS: 36415; 70450; 71045; 78582; 80048; 80053; 81001; 82550; 82553; 83690; 84484; 85007; 85025; 85379; 87040; 87086; 93306; 93880; A9270-GY; A9540; A9558; J0360; J0696; J1650; J7030

== ENCOUNTER 2018-12-25 22:24 | Emergency (ER) | payer OTHER ==
--- NOTE | 2018-12-25 23:41 | Emergency Department Report ---
ED General Adult HPI - General Chief complaint: Dizziness Stated complaint: DIZZINESS LEG PAIN Time Seen by Provider: 12/25/18 23:28 Source: patient, RN notes reviewed, old records reviewed Mode of arrival: Ambulatory Limitations: No Limitations - History of Present Illness Initial comments: Primary care Dr.: Dr. Shemar Pink Past medical history hypertension, high cholesterol, renal insufficiency, now resolved This is a pleasant 58-year-old female. The patient is not known to this provider previously. The patient presents to the emergency room with the complaint of weakness. The weakness is present for 1 month. It is associated with bilateral plantar leg burning and pain. The patient complains of dizziness. The dizziness is described as a sensation of weakness. It is present for 1 month. The patient denies headache, neck pain, chest pain, abdominal pain, shortness of breath, nausea, vomiting, diarrhea, urinary symptoms. The patient has not had a colonoscopy in the past 10 years. She's not had a Pap smear recently. She believes that she has had a mammogram within the past 5 years. She reports that she lives with family. She reports that she is independent to perform activities of daily living. The patient had an echocardiogram performed at this hospital, February 2018, demonstrating normal left ventricular systolic function, and an ejection fraction of 50-55% -: week(s) Severity scale (0 -10): 0 Consistency: intermittent Improves with: none Worsens with: none - Related Data Previous Rx's Medication Instructions Recorded Last Taken Type Aspirin [Aspirin TAB] 325 mg PO QDAY #30 tablet 05/24/13 2 Days Ago Rx ~03/27/18 Lisinopril [Zestril TAB] 10 mg PO QDAY #30 tablet 05/24/13 2 Days Ago Rx ~03/27/18 Simvastatin (Nf) [Zocor TAB] 20 mg PO QHS #30 tablet 05/24/13 2 Days Ago Rx ~03/27/18 Ciprofloxacin HCl [Ciprofloxacin 500 mg PO Q12HR #10 tab 03/29/18 Unknown Rx TAB] Allergies Allergy/AdvReac Type Severity Reaction Status Date / Time No Known Allergies Allergy Verified 12/25/18 22:28 ED Review of Systems ROS: Stated complaint: DIZZINESS LEG PAIN Other details as noted in HPI Constitutional: malaise, weakness Eyes: denies: eye discharge ENT: denies: epistaxis Respiratory: denies: cough Cardiovascular: denies: chest pain Gastrointestinal: denies: abdominal pain, nausea, vomiting Genitourinary: denies: urgency, dysuria Musculoskeletal: arthralgia, myalgia Skin: denies: lesions Neurological: weakness. denies: numbness, paresthesias, confusion, abnormal gait, vertigo ED Past Medical Hx - Past Medical History Previous Medical History?: Yes Hx Hypertension: Yes Hx CVA: Yes (left leg weakness,uses walker) Hx Congestive Heart Failure: No Hx Diabetes: No Hx Asthma: No Hx COPD: No - Surgical History Past Surgical History?: No - Social History Smoking Status: Current Some Day Smoker - Medications Home Medications: Home Medications Medication Instructions Recorded Confirmed Last Taken Type Aspirin [Aspirin TAB] 325 mg PO QDAY #30 tablet 05/24/13 03/29/18 2 Days Ago Rx ~03/27/18 Lisinopril [Zestril TAB] 10 mg PO QDAY #30 tablet 05/24/13 03/29/18 2 Days Ago Rx ~03/27/18 Simvastatin (Nf) [Zocor TAB] 20 mg PO QHS #30 tablet 05/24/13 03/29/18 2 Days Ago Rx ~03/27/18 Ciprofloxacin HCl [Ciprofloxacin 500 mg PO Q12HR #10 tab 03/29/18 Unknown Rx TAB] ED Physical Exam - General Limitations: No Limitations General appearance: alert, in no apparent distress - Head Head exam: Present: atraumatic, normocephalic - Eye Eye exam: Present: normal appearance, PERRL, EOMI, other (visual acuity intact to finger counting, color perception, reading at a close distance). Absent: nystagmus - ENT ENT exam: Present: normal exam, normal orophraynx, mucous membranes moist, normal external ear exam - Neck Neck exam: Present: normal inspection, full ROM. Absent: tenderness, meningismus - Respiratory Respiratory exam: Present: normal lung sounds bilaterally. Absent: respiratory distress - Cardiovascular Cardiovascular Exam: Present: regular rate, normal rhythm, normal heart sounds. Absent: bradycardia, tachycardia, irregular rhythm, systolic murmur, diastolic murmur, rubs, gallop - GI/Abdominal GI/Abdominal exam: Present: soft. Absent: distended, tenderness, guarding, rebound, rigid, pulsatile mass - Extremities Exam Extremities exam: Present: normal inspection, full ROM, other (2+ pulses noted i n the bilateral upper, lower extremities. Compartments soft. No long bony tenderness. The pelvis is stable.). Absent: pedal edema, joint swelling, calf tenderness - Back Exam Back exam: Present: normal inspection, full ROM. Absent: tenderness, CVA tenderness (R), paraspinal tenderness, vertebral tenderness - Neurological Exam Neurological exam: Present: alert, oriented X3 (alert to name, month, location, city, state), normal gait (there is no pass pointing. There is negative pronator drift. There is normal [id number].), other (Extraocular movements intact. Tongue midline. No facial droop. Facial sensation intact to light touch in the V1, V2, V3 distribution bilaterally. 5 and 5 strength in 4 extremities.. Sensation is intact to light touch in 4 extremities.). Absent: motor sensory deficit - Psychiatric Psychiatric exam: Present: normal affect, normal mood - Skin Skin exam: Present: warm, dry, intact, normal color. Absent: rash ED Course Vital Signs 12/25/18 12/25/18 12/25/18 22:38 22:46 23:20 Temperature 97.6 F 97.6 F Pulse Rate 80 80 68 Respiratory 16 18 18 Rate Blood Pressure 215/120 200/110 Blood Pressure 170/98 [Left] O2 Sat by Pulse 99 99 97 Oximetry 12/26/18 12/26/18 12/26/18 00:00 00:51 01:24 Temperature Pulse Rate 62 65 Respiratory 18 17 Rate Blood Pressure 206/117 Blood Pressure 198/120 [Left] O2 Sat by Pulse 96 96 Oximetry - Reevaluation(s) Reevaluation #1: 12/26/18 02:22 Patient is resting comfortably, and in no acute distress. Laboratory studies reviewed and appreciated. The patient can follow-up for renal insufficiency, and nonspecific dyslipidemia. TSH within normal limits. Hemoglobin A1c has not yet resulted. The patient can have a primary care doctor contact the medical records department to obtain outpatient laboratory studies. Patient is observed in the emergency room for a few hours without clinical decompensation. The patient does not appear to have an emergent medical condition at this time. She is given copy of her laboratory studies. She is given referrals for numerous local primary care doctors. The patient will be discharged at this time. Precautions have been reviewed ED Medical Decision Making - Lab Data Result diagrams: 12/26/18 00:02 12/26/18 00:02 Vital Signs 12/25/18 12/25/18 12/25/18 22:38 22:46 23:20 Temperature 97.6 F 97.6 F Pulse Rate 80 80 68 Respiratory 16 18 18 Rate Blood Pressure 215/120 200/110 Blood Pressure 170/98 [Left] O2 Sat by Pulse 99 99 97 Oximetry 12/26/18 00:00 Temperature Pulse Rate Respiratory 18 Rate Blood Pressure Blood Pressure [Left] O2 Sat by Pulse 96 Oximetry Lab Results 12/26/18 Range/Units 00:02 WBC 9.2 (4.5-11.0) K/mm3 RBC 5.15 H (3.65-5.03) M/mm3 Hgb 15.0 H (10.1-14.3) gm/dl Hct 45.1 H (30.3-42.9) % MCV 88 (79-97) fl MCH 29 (28-32) pg MCHC 33 (30-34) % RDW 15.8 H (13.2-15.2) % Plt Count 367 (140-440) K/mm3 Vital Signs 12/25/18 12/25/18 12/25/18 22:38 22:46 23:20 Temperature 97.6 F 97.6 F Pulse Rate 80 80 68 Respiratory 16 18 18 Rate Blood Pressure 215/120 200/110 Blood Pressure 170/98 [Left] O2 Sat by Pulse 99 99 97 Oximetry 12/26/18 12/26/18 12/26/18 00:00 00:51 01:24 Temperature Pulse Rate 62 65 Respiratory 18 17 Rate Blood Pressure 206/117 Blood Pressure 198/120 [Left] O2 Sat by Pulse 96 96 Oximetry Labs 12/26/18 12/26/18 12/26/18 00:02 00:02 00:02 WBC 9.2 RBC 5.15 H Hgb 15.0 H Hct 45.1 H MCV 88 MCH 29 MCHC 33 RDW 15.8 H Plt Count 367 Sodium 142 Potassium 3.7 Chloride 102.3 Carbon Dioxide 24 Anion Gap 19 BUN 29 H Creatinine 1.4 H Estimated GFR 46 BUN/Creatinine Ratio 21 Glucose 93 Calcium 9.5 Total Bilirubin 0.20 AST 17 ALT 17 Alkaline Phosphatase 78 Total Protein 7.9 Albumin 4.3 Albumin/Globulin Ratio 1.2 Triglycerides 111 Cholesterol 204 H LDL Cholesterol Direct 146 H HDL Cholesterol 51 Cholesterol/HDL Ratio 4.00 TSH 1.340 Urine Color Urine Turbidity Urine pH Ur Specific [place] Urine Protein Urine Glucose (UA) Urine Ketones Urine Blood Urine Nitrite Urine Bilirubin Urine Urobilinogen Ur Leukocyte Esterase Urine WBC (Auto) Urine RBC (Auto) U Epithel Cells (Auto) Hyaline Casts Urine Mucus 12/26/18 01:02 WBC RBC Hgb Hct MCV MCH MCHC RDW Plt Count Sodium Potassium Chloride Carbon Dioxide Anion Gap BUN Creatinine Estimated GFR BUN/Creatinine Ratio Glucose Calcium Total Bilirubin AST ALT Alkaline Phosphatase Total Protein Albumin Albumin/Globulin Ratio Triglycerides Cholesterol LDL Cholesterol Direct HDL Cholesterol Cholesterol/HDL Ratio TSH Urine Color Yellow Urine Turbidity Clear Urine pH 5.0 Ur Specific [place] 1.016 Urine Protein <15 mg/dl Urine Glucose (UA) Neg Urine Ketones Neg Urine Blood Neg Urine Nitrite Neg Urine Bilirubin Neg Urine Urobilinogen 2.0 Ur Leukocyte Esterase Neg Urine WBC (Auto) 2.0 Urine RBC (Auto) 1.0 U Epithel Cells (Auto) 1.0 Hyaline Casts 1 Urine Mucus Few - EKG Data -: EKG Interpreted by De EKG shows normal: sinus rhythm Rate: normal - EKG Data 12/26/18 00:49 EKG shows a normal sinus rhythm, 75 bpm, normal axis, UTC 445 ms, left ventricular hypertrophy, atrial enlargement, not having chest pain, this is an abnormal EKG, there is no prior EKG available for comparison currently, this EKG is not consistent with ST elevation myocardial infarction. - Radiology Data Radiology results: pending - Medical Decision Making Differential diagnosis, including but not limited to: General medical evaluation, wellness checkup, thyroid derangement, renal derangement, Assessment and plan: 58-year-old female with a complaint of weakness for a few weeks. The patient is afebrile with reassuring vital signs without focal pain. Elevated blood pressure reviewed and appreciated, and this is a chronic medical condition. The patient walks with a steady gait, and has a nonfocal neurologic examination. EKG abnormal, nonspecific, echocardiogram from last year is reviewed and appreciated. I suspect that the patient is to follow-up with an outpatient primary care doctor for her general health maintenance. Appropriate screening laboratory studies have been sent to assist with health maintenance evaluation. Critical care attestation.: If time is entered above; I have spent that time in minutes in the direct care of this critically ill patient, excluding procedure time. ED Disposition Clinical Impression: Elevated blood pressure reading, Renal insufficiency, History of weakness Disposition: DC-01 TO HOME OR SELFCARE Is pt being admited?: No Does the pt Need Aspirin: No Condition: Stable Instructions: Hypertension (ED) Additional Instructions: Continue current outpatient medications. Follow up with the primary care doctor within the next 4-6 weeks for routine outpatient health maintenance. Laboratory studies were sent today, and they should be followed up by her primary care doctor within the recommended timeframe. It is very important that the patient follow up with an outpatient primary care doctor for routine health maintenance. Patient should have routine scheduled screenings such as colonoscopy, mammogram, Pap smear to exclude cancer, tumor, malignancy. Please note that blood pressure was elevated while in the emergency room. The patient should follow-up with a primary care doctor as recommended for blood pressure check ups and medication adjustments. Long-term complications of hypertension and elevated blood pressure include stroke, heart attack, disability, paralysis, loss of quality of life. Please return to the emergency room right away with new pain, worsened pain, migration of pain, projectile vomiting, change in mental status, confusion, inability to tolerate liquid feeds. Laboratory studies demonstrated very mild impairment in kidney function. Avoid consumption of Motrin, ibuprofen, Naprosyn, Aleve. Referrals: [facility] [Provider Group] - 3-5 Days [facility] [Provider Group] - 3-5 Days
[2018-12-26 00:22] LABS: Hematocrit 45.1 % (30.3-42.9); Mean Corpuscular HGB Conc 33 % (30-34); Mean Corpuscular Volume 88 fl (79-97); Platelet Count 367 K/mm3 (140-440); Red Blood Count 5.15 M/mm3 (3.65-5.03); Red Cell Distribution Width 15.8 % (13.2-15.2)
[2018-12-26] MEDS ORDERED: NORVASC ONE (00:48)
[2018-12-26] MEDS ORDERED: NORVASC PO ONE (00:50)
[2018-12-26 01:17] LABS: Bilirubin,Urine NEG (Negative); Blood,Urine NEG (Negative); Color,Urine Yellow (Yellow); Hyaline Casts,Urine 1 /LPF; Mucus,Urine FEW /HPF; Protein,Urine <15 mg/dL mg/dL (Negative)
[2018-12-26 01:24] VITALS: BP 198/120
[2018-12-26 02:20] LABS: Albumin 4.3 g/dL (3.9-5); Calcium 9.5 mg/dL (8.4-10.2)
== END 2018-12-26 02:31 | disposition home or self-care (01) ==
LOC: ED 22:24
DX: N28.9 Disorder of kidney and ureter, unspecified (principal); I10 Essential (primary) hypertension; F17.200 Nicotine dependence, unspecified, uncomplicated; Z79.899 Other long term (current) drug therapy; Z86.73 Personal history of transient ischemic attack (TIA), and cerebral infarction without residual deficits
CPT/HCPCS: 36415; 80053; 80061; 81001; 83036; 84443; 85027; 93005; 93010; 99283

== ENCOUNTER 2019-04-10 19:17 | Observation (INO) | payer OTHER ==
[2019-04-10] MEDS ORDERED: CATAPRES PO ONE ×4 (20:22→22:30)
--- NOTE | 2019-04-10 21:38 | Emergency Department Report ---
ED General Adult HPI - General Chief complaint: High BP Stated complaint: HIGH BP Time Seen by Provider: 04/10/19 20:22 Source: EMS Mode of arrival: Ambulatory Limitations: No Limitations - History of Present Illness Initial comments: Patient reports she felt dizzy. Reports non-compliance with anti-hypertensives for approximately 1 year. Reports no PCP on medicaid. Reports that she has been evaluated in the past for similar symptoms that were related to her uncontrolled HTN. Severity scale (0 -10): 6 - Related Data Previous Rx's Medication Instructions Recorded Last Taken Type Aspirin 325 mg PO QDAY #30 tablet 05/24/13 2 Days Ago Rx ~03/27/18 Lisinopril [Zestril TAB] 10 mg PO QDAY #30 tablet 05/24/13 2 Days Ago Rx ~03/27/18 Simvastatin (Nf) [Zocor TAB] 20 mg PO QHS #30 tablet 05/24/13 2 Days Ago Rx ~03/27/18 cloNIDine [Catapres] 0.1 mg PO BID #28 tablet 04/10/19 Unknown Rx Allergies Allergy/AdvReac Type Severity Reaction Status Date / Time No Known Allergies Allergy Verified 12/25/18 22:28 ED Review of Systems ROS: Stated complaint: HIGH BP Other details as noted in HPI Other: GENERAL: No weight change, fatigue, weakness, fever, chills, or night sweats SKIN: No changes in skin or hair, no itching, no rashes, no jaundice HEAD: No trauma, headache, or visual changes EYES: No blurriness, tearing, itching, acute visual loss, conjunctival discoloration, or scleral icterus EARS: No hearing loss, tinnitus, vertigo, or earache NOSE: No rhinorrhea, stuffiness, sneezing, itching, or epistaxis MOUTH: No bleeding gums, hoarseness, sore throat, or swelling CARDIAC: No new murmur, chest pain, palpitations, dyspnea on exertion, orthopn ea, PND, or edema RESPIRATORY: No shortness of breath, wheeze, cough, sputum production, hemoptysis, pneumonia, asthma, bronchitis, or emphysema GI: No change in appetite, nausea, vomiting, dysphagia, change in bowel frequency, diarrhea, constipation, bleeding, hematemesis, melena, hematochezia, or abdominal pain MUSCULOSKELETAL: No muscle weakness, joint stiffness, decrease in range of motion, redness, swelling NEUROLOGIC: Dizziness. No loss of sensation, numbness, tingling, tremors, weakness, paralysis, seizures HEMATOLOGIC: No anemia, easy bruising, bleeding, petechiae, or purpura ENDOCRINE: No hot or cold intolerance, sweating, polyuria, polydipsia or, polyphagia no thyroid problems ED Past Medical Hx - Past Medical History Previous Medical History?: Yes Hx Hypertension: Yes Hx CVA: Yes (left leg weakness,uses walker) Hx Heart Attack/AMI: No Hx Congestive Heart Failure: No Hx Diabetes: No Hx Deep Vein Thrombosis: No Hx Pulmonary Embolism: No Hx GERD: No Hx Liver Disease: No Hx Renal Disease: No Hx of Cancer: No Hx Sickle Cell Disease: No Hx Arthritis: No Hx Headaches / Migraines: No Hx Seizures: No Hx Kidney Stones: No Hx Psychiatric Treatment: No Hx Asthma: No Hx COPD: No Hx Tuberculosis: No Hx Dementia: No Hx HIV: No - Surgical History Past Surgical History?: No Hx Coronary Stent: No Hx Open Heart Surgery: No Hx Pacemaker: No Hx Internal Defibrillator: No Hx Cholecystectomy: No Hx Appendectomy: No Hx Breast Surgery: No - Social History Smoking Status: Never Smoker Substance Use Type: None - Medications Home Medications: Home Medications Medication Instructions Recorded Confirmed Last Taken Type Aspirin 325 mg PO QDAY #30 tablet 05/24/13 04/11/19 2 Days Ago Rx ~03/27/18 Lisinopril [Zestril TAB] 10 mg PO QDAY #30 tablet 05/24/13 04/11/19 2 Days Ago Rx ~03/27/18 Simvastatin (Nf) [Zocor TAB] 20 mg PO QHS #30 tablet 05/24/13 04/11/19 2 Days Ago Rx ~03/27/18 cloNIDine [Catapres] 0.1 mg PO BID #28 tablet 04/10/19 Unknown Rx ED Physical Exam - General Limitations: No Limitations - Other Other exam information: GENERAL: Patient in no acute distress HEAD: Normocephalic, atraumatic EYES: PERRLA, EOM intact, no scleral icterus, no conjunctival hemorrhage, visual carlos and acuity wnl NOSE: No tenderness, discharge, sinus tenderness MOUTH: No erythema, bleeding, exudate HEART: Regular rate and rhythm, no murmur, S1-S2 are auscultated, pulses are symmetric LUNGS: Bilateral breath sounds, No tachypnea, No retractions, No wheezing, rales, rhonchi ABDOMEN: Normal bowel sounds, no tenderness, no rebound, no guarding, no masses, no CVA tenderness MUSCULOSKELETAL: Normal joint range of motion, no redness, no swelling, no tenderness NEUROLOGIC: GCS 15, Alert and Oriented x3, Cranial nerves intact, normal sensation, normal strength, normal gait, no cerebellar deficit, NIHSS 0 SKIN: Skin is warm and dry, no wounds, no rashes ED Course Vital Signs 04/10/19 04/10/19 04/10/19 19:32 19:46 20:00 Temperature 98.6 F Pulse Rate 58 L 59 L 57 L Respiratory 21 16 14 Rate Blood Pressure 224/126 224/126 224/126 Blood Pressure 224/126 [Right] O2 Sat by Pulse 99 100 99 Oximetry 04/10/19 04/10/19 04/10/19 20:16 20:30 20:46 Temperature Pulse Rate 53 L 73 55 L Respiratory 19 21 20 Rate Blood Pressure 224/126 214/122 214/122 Blood Pressure [Right] O2 Sat by Pulse 99 99 99 Oximetry 04/10/19 04/10/19 04/10/19 21:00 21:13 21:16 Temperature Pulse Rate 64 57 L 54 L Respiratory 22 18 Rate Blood Pressure 214/122 214/122 214/122 Blood Pressure [Right] O2 Sat by Pulse 100 100 Oximetry 04/10/19 04/10/19 04/10/19 21:30 21:32 21:45 Temperature Pulse Rate 65 62 Respiratory 23 19 21 Rate Blood Pressure 179/96 248/140 Blood Pressure [Right] O2 Sat by Pulse 97 93 Oximetry 04/10/19 04/10/19 04/10/19 21:54 22:00 22:16 Temperature Pulse Rate 60 53 L 50 L Respiratory 14 16 20 Rate Blood Pressure 224/135 224/135 224/135 Blood Pressure [Right] O2 Sat by Pulse 100 100 100 Oximetry 04/10/19 04/10/19 04/10/19 22:30 22:46 23:00 Temperature Pulse Rate 52 L 48 L 51 L Respiratory 17 20 22 Rate Blood Pressure 227/125 202/122 202/122 Blood Pressure [Right] O2 Sat by Pulse 98 99 100 Oximetry 04/10/19 04/10/19 04/10/19 23:16 23:30 23:46 Temperature Pulse Rate 52 L 56 L 47 L Respiratory 21 24 19 Rate Blood Pressure 202/122 214/130 214/130 Blood Pressure [Right] O2 Sat by Pulse 100 100 99 Oximetry 04/11/19 04/11/19 04/11/19 00:00 00:19 00:31 Temperature Pulse Rate 56 L 60 69 Respiratory 24 27 H 22 Rate Blood Pressure 214/130 181/113 Blood Pressure [Right] O2 Sat by Pulse 100 100 100 Oximetry ED Medical Decision Making - Lab Data Result diagrams: 04/10/19 23:33 04/10/19 23:36 Laboratory Results - last 24 hr 04/10/19 04/10/19 23:33 23:36 WBC 7.0 RBC 4.68 Hgb 13.6 Hct 41.2 MCV 88 MCH 29 MCHC 33 RDW 15.7 H Plt Count 217 Lymph % (Auto) 29.6 [place] % (Auto) 6.3 Eos % (Auto) 1.4 Baso % (Auto) 0.7 Lymph # 2.1 [place] # 0.4 Eos # 0.1 Baso # 0.0 Seg Neutrophils % 62.0 Seg Neutrophils # 4.3 Sodium 144 Potassium 3.2 L Chloride 107.5 H Carbon Dioxide 27 Anion Gap 13 BUN 16 Creatinine 1.0 Estimated GFR > 60 BUN/Creatinine Ratio 16 Glucose 103 H Calcium 8.6 Troponin T < 0.010 - EKG Data When compared to previous EKG there are: no significant change - Radiology Data Radiology results: report reviewed - Medical Decision Making Patient comfortable. Updated with results. HTN refractory to po management in the ER. HTN improved only with IV anti-hypertensives. Plan admit for further evaluation and BP control. Hospitalist updated and accepts admission. Critical care attestation.: If time is entered above; I have spent that time in minutes in the direct care of this critically ill patient, excluding procedure time. ED Disposition Clinical Impression: Hypertensive urgency Disposition: OP ADMIT IP TO THIS HOSP Is pt being admited?: Yes Condition: Stable Instructions: Hypertension (ED) Prescriptions: cloNIDine [Catapres] 0.1 mg PO BID #28 tablet Referrals: MADDIE SINGH MD [Primary Care Provider] - 2-3 Days [facility] [Outside] - 2-3 Days Time of Disposition: 21:37
[2019-04-10] MEDS ORDERED: APRESOLINE IV ONE (23:38)
[2019-04-10 23:45] LABS: Basophils % (Auto) 0.7 % (0.0-1.8); Eosinophils # (Auto) 0.1 K/mm3 (0.0-0.4); Eosinophils % (Auto) 1.4 % (0.0-4.3); Hematocrit 41.2 % (30.3-42.9); Hemoglobin 13.6 gm/dl (10.1-14.3); Lymphocytes # (Auto) 2.1 K/mm3 (1.2-5.4); Lymphocytes % (Auto) 29.6 % (13.4-35.0); Mean Corpuscular HGB Conc 33 % (30-34); Mean Corpuscular Volume 88 fl (79-97); Monocytes # (Auto) 0.4 K/mm3 (0.0-0.8); Monocytes % (Auto) 6.3 % (0.0-7.3); Platelet Count 217 K/mm3 (140-440); Red Blood Count 4.68 M/mm3 (3.65-5.03); Red Cell Distribution Width 15.7 % (13.2-15.2)
[2019-04-11] LABS: BUN/Creatinine Ratio 16; Blood Urea Nitrogen 16 mg/dL (7-17); Calcium 8.6 mg/dL (8.4-10.2); Hemolysis Index 4
--- NOTE | 2019-04-11 00:03 | XRay Report ---
CHEST 1 VIEW INDICATION: HTN. Acute generalized chest pain COMPARISON: 03/28/2018 FINDINGS: Support devices: None. Heart: Within normal limits. Lungs/Pleura: No acute air space or interstitial disease. Additional findings: None. IMPRESSION: 1. No acute findings. Signer Name: Mark Chau MD Signed: 04/10/2019 11:59 PM Workstation Name: [id number]
[2019-04-11] MEDS ORDERED: NACL 0.9% 250ML 250 ML ONE (01:03)
[2019-04-11] MEDS ORDERED: TYLENOL PO PRN (01:24)
[2019-04-11] MEDS ORDERED: ZOFRAN IV PRN ×2 (01:24→01:45)
[2019-04-11] MEDS ORDERED: SODIUM CHLORIDE FLUSH SYRINGE 10 ML IV PRN (01:24)
[2019-04-11] MEDS: KCL 10MEQ/100ML 10 MEQ/100 ML BAG IV SCH ×4 (01:33→05:16)
[2019-04-11] MEDS ORDERED: APRESOLINE IV PRN (01:45)
--- NOTE | 2019-04-11 01:59 | History and Physical Report ---
History of Present Illness Chief complaint: I feel dizzy History of present illness: 58-year-old woman who presents with feeling dizzy. She reports noncompliance and her blood pressure medications for over a year. She does not have any primary care doctor, she has not taken her meds in a while. She states that she had similar complaints when she had high blood pressure in the past. Past medical history; hypertension, history of CVA with left leg weakness, uses walker, past surgical history denies any major surgeries Social history Denies smoking or alcohol abuse or illicit drug use Family history; reports family history of hypertension Constitutional: no fever, no chills, no night sweats, no weight loss, no weight gain, no sweats, no anorexia, no fatigue, no weakness, no malaise, no lethargy Eyes: bilateral: other (no complaint of visual problems.) Ears, nose, mouth and throat: mouth pain, no ear pain, no ear discharge, no decreased hearing, no nose pain, no nasal congestion, no bleeding gums, no dental pain, no dysphagia, no hoarseness, no sore throat Cardiovascular: no orthopnea, no palpitations, no rapid/irregular heart beat, no phlebitis Respiratory: no cough with sputum, no excessive sputum, no hemoptysis, no wheezing, no pleurisy, no pain Gastrointestinal: abdominal pain, nausea, no vomiting, no diarrhea, no hematochezia, no loss of appetite Rectal: no pain, no incontinence, no bleeding Musculoskeletal: no neck stiffness, no neck pain, no shooting arm pain, no arm numbness/tingling, no low back pain, no shooting leg pain, no leg numbness/tingling Integumentary: no pruritis, no redness, no sores Neurological: no transient paralysis, no paralysis, no weakness Psychiatric: no memory loss, no change in sleep habits, no disorientation Endocrine: no heat intolerance, no polyphagia Hematologic/Lymphatic: no easy bruising, no easy bleeding Allergic/Immunologic: no allergic rhinitis Medications and Allergies Allergies Allergy/AdvReac Type Severity Reaction Status Date / Time No Known Allergies Allergy Verified 12/25/18 22:28 Home Medications Medication Instructions Recorded Confirmed Last Taken Type Aspirin 325 mg PO QDAY #30 tablet 05/24/13 04/11/19 2 Days Ago Rx ~03/27/18 Lisinopril [Zestril TAB] 10 mg PO QDAY #30 tablet 05/24/13 04/11/19 2 Days Ago Rx ~03/27/18 Simvastatin (Nf) [Zocor TAB] 20 mg PO QHS #30 tablet 05/24/13 04/11/19 2 Days Ago Rx ~03/27/18 cloNIDine [Catapres] 0.1 mg PO BID #28 tablet 04/10/19 Unknown Rx Active Meds: Active Medications Acetaminophen (Tylenol) 650 mg PO Q4H PRN PRN Reason: Pain MILD(1-3)/Fever >100.5/ROSE Aspirin (Aspirin) 325 mg PO QDAY FREYA Hydralazine HCl (Apresoline) 10 mg IV Q4H PRN PRN Reason: BP >160/100 Potassium Chloride (Kcl 10meq/100ml) 10 meq in 100 mls @ 100 mls/hr IV Q1H FREYA Stop: 04/11/19 05:29 Last Admin: 04/11/19 01:33 Dose: 100 mls/hr Documented by: Lisinopril (Zestril) 40 mg PO QDAY FREYA Ondansetron HCl (Zofran) 4 mg IV Q8H PRN PRN Reason: Nausea And Vomiting Ondansetron HCl (Zofran) 4 mg IV Q8H PRN PRN Reason: Nausea And Vomiting Pravastatin Sodium (Pravachol) 40 mg PO QHS [facility] Sodium Chloride (Sodium Chloride Flush Syringe 10 Ml) 10 ml IV BID FREYA Sodium Chloride (Sodium Chloride Flush Syringe 10 Ml) 10 ml IV PRN PRN PRN Reason: LINE FLUSH Exam - Constitutional Vitals: Temp Pulse Resp BP Pulse Ox 98.6 F 69 22 181/113 100 04/10/19 19:32 04/11/19 00:31 04/11/19 00:31 04/11/19 00:31 04/11/19 00:31 General appearance: Present: no acute distress, well-nourished - EENT Eyes: Present: PERRL ENT: hearing intact, clear oral mucosa - Neck Neck: Present: supple, normal ROM - Respiratory Respiratory effort: normal Respiratory: bilateral: CTA - Cardiovascular Heart Sounds: Present: S1 & S2. Absent: rub, click - Extremities Extremities: pulses symmetrical, No edema Peripheral Pulses: within normal limits - Abdominal General gastrointestinal: Present: soft, non-tender, non-distended, normal bowel sounds Female genitourinary: Present: normal - Integumentary Integumentary: Present: clear, warm, dry - Musculoskeletal Musculoskeletal: gait normal, strength equal bilaterally - Psychiatric Psychiatric: appropriate mood/affect, intact judgment & insight - Neurologic Neurologic: CNII-XII intact, moves all extremities Results - Labs CBC & Chem 7: 04/10/19 23:33 04/10/19 23:36 Labs: Laboratory Last Values WBC 7.0 K/mm3 (4.5-11.0) 04/10/19 23:33 RBC 4.68 M/mm3 (3.65-5.03) 04/10/19 23:33 Hgb 13.6 gm/dl (10.1-14.3) 04/10/19 23:33 Hct 41.2 % (30.3-42.9) 04/10/19 23:33 MCV 88 fl (79-97) 04/10/19 23: MCH 29 pg (28-32) 04/10/19 23:33 MCHC 33 % (30-34) 04/10/19 23:33 RDW 15.7 % (13.2-15.2) H 04/10/19 23:33 Plt Count 217 K/mm3 (140-440) 04/10/19 23:33 Lymph % (Auto) 29.6 % (13.4-35.0) 04/10/19 23:33 [place] % (Auto) 6.3 % (0.0-7.3) 04/10/19 23: Eos % (Auto) 1.4 % (0.0-4.3) 04/10/19 23:33 Baso % (Auto) 0.7 % (0.0-1.8) 04/10/19 23:33 Lymph # 2.1 K/mm3 (1.2-5.4) 04/10/19 23:33 [place] # 0.4 K/mm3 (0.0-0.8) 04/10/19 23:33 Eos # 0.1 K/mm3 (0.0-0.4) 04/10/19 23: Baso # 0.0 K/mm3 (0.0-0.1) 04/10/19 23:33 Seg Neutrophils % 62.0 % (40.0-70.0) 04/10/19 23:33 Seg Neutrophils # 4.3 K/mm3 (1.8-7.7) 04/10/19 23:33 Sodium 144 mmol/L (137-145) 04/10/19 23:36 Potassium 3.2 mmol/L (3.6-5.0) L 04/10/19 23:36 Chloride 107.5 mmol/L (98-107) H 04/10/19 23:36 Carbon Dioxide 27 mmol/L (22-30) 04/10/19 23:36 13 mmol/L 04/10/19 23:36 BUN 16 mg/dL (7-17) 04/10/19 23:36 1.0 mg/dL (0.7-1.2) 04/10/19 23:36 Estimated GFR > 60 ml/min 04/10/19 23:36 16 % 04/10/19 23:36 Glucose 103 mg/dL (65-100) H 04/10/19 23:36 Calcium 8.6 mg/dL (8.4-10.2) 04/10/19 23:36 < 0.010 ng/mL (0.00-0.029) 04/10/19 23:36 - Imaging and Cardiology Chest x-ray: image reviewed (no acute findings) Assessment and Plan Assessment and plan: 58-year-old woman who presents with dizziness due to hypertensive urgency Hypertensive urgency Optimize BP meds, will avoid clonidine at this time as it causes rebound hypertension Nonadherence to medications Preventative health counseling performed 417 minutes Hypokalemia Potassium has been repleted HLD cont statin, check lipid panel in am dvt ppx- early ambulation
[2019-04-11 03:35] LABS: Chol/HDL Ratio 3.73 %
[2019-04-11] MEDS: ASPIRIN PO SCH ×2 (03:40→09:34)
[2019-04-11] MEDS ORDERED: APRESOLINE ONE (03:58)
[2019-04-11] MEDS ORDERED: SODIUM CHLORIDE FLUSH SYRINGE 10 ML IV SCH (10:00)
[2019-04-11] MEDS ORDERED: ZESTRIL PO SCH (10:00)
--- NOTE | 2019-04-11 14:29 | Discharge Summary ---
Providers - Providers Date of Admission: 04/11/19 01:24 Date of discharge: 04/11/19 Attending physician: JERSEY KIRKLAND [facility] Condition: Stable Hospital course: Patient is a 58-year-old woman who presents with dizziness due to hypertensive urgency. She admits to being out of bp medications Discharge Diagnoses: Hypertensive urgency: Optimize BP meds, Nonadherence to medications: counseling done Tobacco dependency: counseling done Hypokalemia: Potassium has been repleted HLD: continue statin, check lipid panel in am DVT ppx- early ambulation Disposition: DC/TX-06 HOME [facility] Time spent for discharge: 35 min Core Measure Documentation - Palliative Care Palliative Care/ Comfort Measures: Not Applicable - Core Measures Any of the following diagnoses?: none - VTE Discharge Requirements Deep Vein Thrombosis/Pulmonary Embolism Present on Admission: No Has pt received <5 days of overlap therapy or INR<2.0: No Anticoagulant overlap therapy prescribed at discharge: No Contraindication No Overlap Therapy order at DC: Not Indicated Exam - Physical Exam Narrative exam: Gen: thin frail, NAD, Awake, Alert, Orientated HEENT: NCAT, EOMI, PERRL, OP Clear Neck: supple, no adenopathy, no thyromegaly, no JVD CVS/Heart: RRR, normal S1S2, pulses present bilaterally Chest/Lungs: CTA B, Symmetrical chest expansion, good air entry bilaterally GI/Abdomen: soft, NTND, good bowel sounds, no guarding or rebound /Bladder: no suprapubic tenderness, no CVA or paraspinal tenderness Extermity/Skin: no c/c/e, no obvious rash MSK: FROM x 4 Neuro: CN 2-12 grossly intact, no new focal deficits Psych: calm - Constitutional Vitals: Temp Pulse Resp BP Pulse Ox 97.5 F L 55 L 18 155/98 100 04/11/19 04:14 04/11/19 10:16 04/11/19 04:14 04/11/19 09:34 04/11/19 04:14 Plan Activity: other (no strenous activity unless cleared by PCP) Diet: low salt Special Instructions: smoking cessation Follow up with: [facility] [place] [facility] [place] - 2-3 Days MADDIE SINGH MD [Primary Care Provider] - 2-3 Days Prescriptions: Pravastatin [Pravachol] 40 mg PO QHS #30 tablet Aspirin 325 mg PO QDAY #30 tablet NIFEdipine XL [Procardia Xl] 30 mg PO QDAY #30 tablet Lisinopril [Zestril TAB] 40 mg PO QDAY #30 tablet
[2019-04-11 14:35] VITALS: BP 142/89
[2019-04-11] MEDS ORDERED: PRAVACHOL PO SCH (22:00)
== END 2019-04-11 17:35 | disposition home health service (06) ==
LOC: ED 19:17 → 4A 04-11 01:24
PROVIDERS: ADMIT Internal Medicine; ATTEND Internal Medicine
DX: I16.0 Hypertensive urgency (principal); R42 Dizziness and giddiness; E87.6 Hypokalemia; E78.5 Hyperlipidemia, unspecified
CPT/HCPCS: 36415; 71045; 80048; 80061; 84484; 85025; 93005; 93010; 96361; 96374; 96376; 99284; 99406; G0378; J0360; J3480; J7050

== ENCOUNTER 2019-04-27 12:23 | Emergency (ER) | payer SELFPAY ==
[2019-04-27] MEDS ORDERED: ZESTRIL PO ONE (12:50)
--- NOTE | 2019-04-27 12:57 | Emergency Department Report ---
ED General Adult HPI - General Chief complaint: High BP Stated complaint: HIGH BLOOD PRESSURE Time Seen by Provider: 04/27/19 12:38 Source: patient, EMS Mode of arrival: Stretcher Limitations: No Limitations - History of Present Illness Initial comments: 58-year-old female with a past medical history of hypertension, hyperlipidemia, previous CVA presents to the hospital complaints of elevated blood pressure. Patient is asymptomatic and denies headache, chest pain, shortness of breath, focal numbness, focal weakness, or leg edema. Patient states she has a visiting home health nurse come to the home every Tuesday. This nurse checked her blood pressure and referred her to the hospital for elevated BP. Patient is noncompliant with her blood pressure medication since discharge from the hospital 2 weeks ago. Patient was admitted for uncontrolled hypertension and subsequently discharged with medications. Patient dropped the medications at the pharmacist but it does not have the $65 to pick them up. 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 Severity scale (0 -10): 0 - Related Data Previous Rx's Medication Instructions Recorded Last Taken Type Aspirin 325 mg PO QDAY #30 tablet 04/11/19 Unknown Rx Lisinopril [Zestril TAB] 40 mg PO QDAY #30 tablet 04/11/19 Unknown Rx NIFEdipine XL [Procardia Xl] 30 mg PO QDAY #30 tablet 04/11/19 Unknown Rx Pravastatin [Pravachol] 40 mg PO QHS #30 tablet 04/11/19 Unknown Rx Allergies Allergy/AdvReac Type Severity Reaction Status Date / Time No Known Allergies Allergy Verified 12/25/18 22:28 ED Review of Systems ROS: Stated complaint: HIGH BLOOD PRESSURE Other details as noted in HPI Comment: All other systems reviewed and negative ED Past Medical Hx - Past Medical History Previous Medical History?: Yes Hx Hypertension: Yes Hx CVA: Yes (left leg weakness,uses walker) Hx Heart Attack/AMI: No Hx Congestive Heart Failure: No Hx Diabetes: No Hx Deep Vein Thrombosis: No Hx Pulmonary Embolism: No Hx GERD: No Hx Liver Disease: No Hx Renal Disease: No Hx Sickle Cell Disease: No Hx Arthritis: No Hx Headaches / Migraines: No Hx Seizures: No Hx Kidney Stones: No Hx Psychiatric Treatment: No Hx Asthma: No Hx COPD: No Hx Tuberculosis: No Hx Dementia: No Hx HIV: No Additional medical history: high cholesterol - Surgical History Past Surgical History?: No Hx Coronary Stent: No Hx Open Heart Surgery: No Hx Pacemaker: No Hx Internal Defibrillator: No Hx Cholecystectomy: No Hx Appendectomy: No Hx Breast Surgery: No Additional Surgical History: denies - Social History Smoking Status: Current Every Day Smoker Substance Use Type: None - Medications Home Medications: Home Medications Medication Instructions Recorded Confirmed Last Taken Type Aspirin 325 mg PO QDAY #30 tablet 04/11/19 Unknown Rx Lisinopril [Zestril TAB] 40 mg PO QDAY #30 tablet 04/11/19 Unknown Rx NIFEdipine XL [Procardia Xl] 30 mg PO QDAY #30 tablet 04/11/19 Unknown Rx Pravastatin [Pravachol] 40 mg PO QHS #30 tablet 04/11/19 Unknown Rx ED Physical Exam - General Limitations: No Limitations - Other Other exam information: General: No acute distress Head: Atraumatic Eyes: Normal appearance ENT: Normal oropharynx Neck: Normal appearance, no posterior or midline tenderness, no meningismus Chest: Clear to auscultation bilaterally, no wheezes, rales, or crackles CV: Regular rate and rhythm Abdomen: soft, normal bowel sounds, nontender, nondistended, no rebound or guarding Back: Nontender Extremity: Normal inspection, full range of motion, nontender Neuro: Alert and oriented 3, speech clear, sensation intact, 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 Patient states she walks with a walker at her baseline. Skin: No rash, redness, warmth ED Course Vital Signs 04/27/19 04/27/19 04/27/19 12:28 12:30 12:39 Temperature 97.9 F Pulse Rate 65 65 69 Respiratory 19 19 Rate Blood Pressure 215/124 215/124 Blood Pressure 215/124 [Right] O2 Sat by Pulse 93 Oximetry 04/27/19 04/27/19 04/27/19 12:44 13:01 13:21 Temperature Pulse Rate 61 52 L Respiratory 19 15 Rate Blood Pressure 215/124 219/105 Blood Pressure [Right] O2 Sat by Pulse 93 93 Oximetry 04/27/19 04/27/19 04/27/19 13:30 14:01 14:30 Temperature Pulse Rate 53 L 57 L 66 Respiratory 19 11 L 13 Rate Blood Pressure 217/105 224/93 227/130 Blood Pressure [Right] O2 Sat by Pulse 97 90 93 Oximetry 04/27/19 04/27/1919 14:48 15:01 15:16 Temperature Pulse Rate 78 71 Respiratory 20 12 Rate Blood Pressure 227/130 207/107 Blood Pressure 227/130 [Right] O2 Sat by Pulse 96 91 Oximetry 04/27/19 04/27/19 04/27/19 15:31 16:01 16:31 Temperature Pulse Rate 77 79 78 Respiratory 18 18 25 H Rate Blood Pressure 204/107 204/107 204/107 Blood Pressure [Right] O2 Sat by Pulse 94 94 94 Oximetry 04/27/19 04/27/19 16:55 16:57 Temperature Pulse Rate 69 71 Respiratory 24 24 Rate Blood Pressure 164/85 Blood Pressure 164/85 [Right] O2 Sat by Pulse 95 96 Oximetry ED Medical Decision Making - Lab Data Result diagrams: 04/27/19 13:04 04/27/19 13:04 Lab Results 04/27/19 04/27/19 Range/Units 13:04 13:04 WBC 5.7 (4.5-11.0) K/mm3 RBC 5.21 H (3.65-5.03) M/mm3 Hgb 15.4 H (10.1-14.3) gm/dl Hct 45.9 H (30.3-42.9) % MCV 88 (79-97) fl MCH 30 (28-32) pg MCHC 34 (30-34) % RDW 15.5 H (13.2-15.2) % Plt Count 242 (140-440) K/mm3 Sodium 143 (137-145) mmol/L Potassium 3.0 L (3.6-5.0) mmol/L Chloride 102.8 (98-107) mmol/L Carbon Dioxide 27 (22-30) mmol/L Anion Gap 16 mmol/L BUN 17 (7-17) mg/dL Creatinine 1.0 (0.7-1.2) mg/dL Estimated GFR > 60 ml/min BUN/Creatinine Ratio 17 % Glucose 84 (65-100) mg/dL Calcium 9.2 (8.4-10.2) mg/dL - Medical Decision Making Patient treated with potassium for mild hypokalemia. She received her lisinopril and nifedipine doses in the ED. Additional IV hydralazine 10 mg given for blood pressure reduction. Blood pressure would not remain controlled unless patient takes her medication. She was encouraged to fill her medication restart them tomorrow as prescribed since she didn't receive her doses today. - Differential Diagnosis medication noncompliance, hypertensive emergency/emergency Critical Care Time: No Critical care attestation.: If time is entered above; I have spent that time in minutes in the direct care of this critically ill patient, excluding procedure time. ED Disposition Clinical Impression: Uncontrolled hypertension, Noncompliance with medication regimen Disposition: TO HOME OR SELFCARE Is pt being admited?: No Does the pt Need Aspirin: No Condition: Stable Instructions: Hypertension (ED) Additional Instructions: Fill you medication and take them as prescribed. You were provided a dose of your medicine in the ER so start your medications tomorrow morning. Follow-up with your doctor or the doctor/clinic provided. Return is symptoms worsen as indicated by your discharge instructions. Referrals: MADDIE SINGH MD [Primary Care Provider] - 3-5 Days Time of Disposition: 17:07
[2019-04-27 13:26] LABS: Hematocrit 45.9 % (30.3-42.9); Hemoglobin 15.4 gm/dl (10.1-14.3); Mean Corpuscular HGB Conc 34 % (30-34); Mean Corpuscular Volume 88 fl (79-97); Platelet Count 242 K/mm3 (140-440); Red Blood Count 5.21 M/mm3 (3.65-5.03); Red Cell Distribution Width 15.5 % (13.2-15.2)
[2019-04-27] MEDS ORDERED: PROCARDIA XL PO ONE (13:30)
[2019-04-27 13:47] LABS: BUN/Creatinine Ratio 17; Blood Urea Nitrogen 17 mg/dL (7-17); Calcium 9.2 mg/dL (8.4-10.2); Hemolysis Index 14
[2019-04-27] MEDS ORDERED: K-DUR PO ONE (14:07)
[2019-04-27] MEDS ORDERED: APRESOLINE IV ONE (14:45)
[2019-04-27 16:56] VITALS: BP 164/85
== END 2019-04-27 17:25 | disposition home or self-care (01) ==
LOC: ED 12:23
DX: I10 Essential (primary) hypertension (principal); I25.2 Old myocardial infarction; E78.00 Pure hypercholesterolemia, unspecified; F17.200 Nicotine dependence, unspecified, uncomplicated
CPT/HCPCS: 36415; 80048; 85027; 96374; 99284; J0360

== ENCOUNTER 2019-05-10 14:58 | Emergency (ER) | payer SELFPAY ==
--- NOTE | 2019-05-10 15:05 | Emergency Department Report ---
Blank Doc - Documentation Documentation: 58-year-old female that presents with uncontrolled HTN. Stated has not been t aking medication for 3 weeks. This initial assessment/diagnostic orders/clinical plan/treatment(s) is/are subject to change based on patient's health status, clinical progression and re- assessment by fellow clinical providers in the ED. Further treatment and workup at subsequent clinical providers discretion. Patient/guardians urged not to elope from the ED as their condition may be serious if not clinically assessed and managed. Initial orders include: 1- Patient sent to [facility] for further evaluation and treatment 2- labs
[2019-05-10 15:36] LABS: Basophils # (Auto) 0.1 K/mm3 (0.0-0.1); Basophils % (Auto) 1.1 % (0.0-1.8); Eosinophils # (Auto) 0.1 K/mm3 (0.0-0.4); Eosinophils % (Auto) 1.1 % (0.0-4.3); Hematocrit 44.9 % (30.3-42.9); Hemoglobin 15.3 gm/dl (10.1-14.3); Lymphocytes # (Auto) 1.5 K/mm3 (1.2-5.4); Lymphocytes % (Auto) 21.1 % (13.4-35.0); Mean Corpuscular HGB Conc 34 % (30-34); Mean Corpuscular Volume 88 fl (79-97); Monocytes # (Auto) 0.4 K/mm3 (0.0-0.8); Monocytes % (Auto) 5.3 % (0.0-7.3); Platelet Count 265 K/mm3 (140-440); Red Blood Count 5.11 M/mm3 (3.65-5.03); Red Cell Distribution Width 15.4 % (13.2-15.2)
[2019-05-10 15:55] LABS: BUN/Creatinine Ratio 15; Blood Urea Nitrogen 16 mg/dL (7-17); Calcium 9.7 mg/dL (8.4-10.2); Hemolysis Index 5
[2019-05-10] MEDS ORDERED: CATAPRES PO ONE (15:58)
--- NOTE | 2019-05-10 17:29 | Emergency Department Report ---
ED General Adult HPI - General Chief complaint: High BP Stated complaint: HBP Time Seen by Provider: 05/10/19 15:04 Source: EMS Mode of arrival: Stretcher Limitations: No Limitations - History of Present Illness Initial comments: Patient is a 58-year-old female who presents emergency room with complaints of high blood pressure. She has not taken her medication in 3 weeks. She states she has had issues affording her medications. She denies any symptoms at all. She denies any chest pain, shortness of breath, numbness, weakness, headache, any other symptoms. - Related Data Previous Rx's Medication Instructions Recorded Last Taken Type Aspirin 325 mg PO QDAY #30 tablet 04/11/19 Unknown Rx NIFEdipine XL [Procardia Xl] 30 mg PO QDAY #30 tablet 04/11/19 Unknown Rx Pravastatin [Pravachol] 40 mg PO QHS #30 tablet 04/11/19 Unknown Rx AtorvaSTATin [Lipitor] 40 mg PO QHS #30 tab 05/10/19 Unknown Rx Lisinopril [Zestril TAB] 40 mg PO QDAY #30 tablet 05/10/19 Unknown Rx amLODIPine [Norvasc] 10 mg PO DAILY #30 tab 05/10/19 Unknown Rx Allergies Allergy/AdvReac Type Severity Reaction Status Date / Time No Known Allergies Allergy Verified 12/25/18 22:28 ED Review of Systems ROS: Stated complaint: HBP Other details as noted in HPI Comment: All other systems reviewed and negative ED Past Medical Hx - Past Medical History Hx Hypertension: Yes Hx CVA: Yes (left leg weakness,uses walker) Hx Heart Attack/AMI: No Hx Congestive Heart Failure: No Hx Diabetes: No Hx Deep Vein Thrombosis: No Hx Pulmonary Embolism: No Hx GERD: No Hx Liver Disease: No Hx Renal Disease: No Hx Sickle Cell Disease: No Hx Arthritis: No Hx Headaches / Migraines: No Hx Seizures: No Hx Kidney Stones: No Hx Psychiatric Treatment: No Hx Asthma: No Hx COPD: No Hx Tuberculosis: No Hx Dementia: No Hx HIV: No Additional medical history: high cholesterol - Surgical History Hx Coronary Stent: No Hx Open Heart Surgery: No Hx Pacemaker: No Hx Internal Defibrillator: No Hx Cholecystectomy: No Hx Appendectomy: No Hx Breast Surgery: No Additional Surgical History: denies - Social History Smoking Status: Current Every Day Smoker Substance Use Type: None - Medications Home Medications: Home Medications Medication Instructions Recorded Confirmed Last Taken Type Aspirin 325 mg PO QDAY #30 tablet 04/11/19 Unknown Rx NIFEdipine XL [Procardia Xl] 30 mg PO QDAY #30 tablet 04/11/19 Unknown Rx Pravastatin [Pravachol] 40 mg PO QHS #30 tablet 04/11/19 Unknown Rx AtorvaSTATin [Lipitor] 40 mg PO QHS #30 tab 05/10/19 Unknown Rx Lisinopril [Zestril TAB] 40 mg PO QDAY #30 tablet 05/10/19 Unknown Rx amLODIPine [Norvasc] 10 mg PO DAILY #30 tab 05/10/19 Unknown Rx ED Physical Exam - General Limitations: No Limitations General appearance: alert, in no apparent distress - Head Head exam: Present: atraumatic, normocephalic - Eye Eye exam: Present: normal appearance - ENT ENT exam: Present: mucous membranes moist - Respiratory Respiratory exam: Present: normal lung sounds bilaterally. Absent: respiratory distress, wheezes, rales, rhonchi, stridor, chest wall tenderness, accessory muscle use, decreased breath sounds, prolonged expiratory - Cardiovascular Cardiovascular Exam: Present: regular rate, normal rhythm, normal heart sounds. Absent: systolic murmur, diastolic murmur, rubs, gallop - Neurological Exam Neurological exam: Present: alert, oriented X3 - Psychiatric Psychiatric exam: Present: normal affect, normal mood - Skin Skin exam: Present: warm, dry, intact ED Course Vital Signs 05/10/19 05/10/19 05/10/19 15:04 16:04 17:44 Temperature 98.1 F Pulse Rate 69 71 65 Respiratory 16 16 Rate Blood Pressure 212/131 Blood Pressure 212/130 198/118 [Left] O2 Sat by Pulse 98 99 Oximetry 05/10/19 17:57 Temperature Pulse Rate 84 Respiratory 18 Rate Blood Pressure Blood Pressure 194/112 [Left] O2 Sat by Pulse 98 Oximetry ED Medical Decision Making - Lab Data Result diagrams: 05/10/19 15:17 05/10/19 15:17 Lab Results 05/10/19 05/10/19 Range/Units 15:17 15:17 WBC 7.2 (4.5-11.0) K/mm3 RBC 5.11 H (3.65-5.03) M/mm3 Hgb 15.3 H (10.1-14.3) gm/dl Hct 44.9 H (30.3-42.9) % MCV 88 (79-97) fl MCH 30 (28-32) pg MCHC 34 (30-34) % RDW 15.4 H (13.2-15.2) % Plt Count 265 (140-440) K/mm3 Lymph % (Auto) 21.1 (13.4-35.0) % [place] % (Auto) 5.3 (0.0-7.3) % Eos % (Auto) 1.1 (0.0-4.3) % Baso % (Auto) 1.1 (0.0-1.8) % Lymph # 1.5 (1.2-5.4) K/mm3 [place] # 0.4 (0.0-0.8) K/mm3 Eos # 0.1 (0.0-0.4) K/mm3 Baso # 0.1 (0.0-0.1) K/mm3 Seg Neutrophils % 71.4 H (40.0-70.0) % Seg Neutrophils # 5.1 (1.8-7.7) K/mm3 Sodium 148 H (137-145) mmol/L Potassium 3.4 L (3.6-5.0) mmol/L Chloride 105.4 (98-107) mmol/L Carbon Dioxide 31 H (22-30) mmol/L Anion Gap 15 mmol/L BUN 16 (7-17) mg/dL Creatinine 1.1 (0.7-1.2) mg/dL Estimated GFR > 60 ml/min BUN/Creatinine Ratio 15 % Glucose 97 (65-100) mg/dL Calcium 9.7 (8.4-10.2) mg/dL Vital Signs 05/10/19 05/10/19 05/10/19 15:04 16:04 17:44 Temperature 98.1 F Pulse Rate 69 71 65 Respiratory 16 16 Rate Blood Pressure 212/131 Blood Pressure 212/130 198/118 [Left] O2 Sat by Pulse 98 99 Oximetry 05/10/19 17:57 Temperature Pulse Rate 84 Respiratory 18 Rate Blood Pressure Blood Pressure 194/112 [Left] O2 Sat by Pulse 98 Oximetry - Medical Decision Making Patient is a 58-year-old female who presents emergency room with complaints of high blood pressure. She has not taken her medication in 3 weeks. She states she has had issues affording her medications. She denies any symptoms at all. She denies any chest pain, shortness of breath, numbness, weakness, headache, any other symptoms. initial vitals with elevated blood pressure of 213/130 improved to 194/112 with clonidine. pt is completely asymptomatic at this time and is not showing signs of end organ damage. labs with kidney function WNL. pt given new prescriptions for medications, pt given prescription for lisinopril, amlodipine, and atorvastatin, discussed with pt that lisinopril is free at [facility], also had pts son download the [employer] heather and her medications should only cost her approximately 14-15 dollars a month, pt states that she is able to afford this amount. discussed with Dr. Mcknight who agreed with medication changes and dosages. advised pt to please take your medications as your prescribed. follow up with a primary care doctor in the next 2-3 days. given list of community resources. return to the emergency room for any new or worsening symptoms. Critical care attestation.: If time is entered above; I have spent that time in minutes in the direct care of this critically ill patient, excluding procedure time. ED Disposition Clinical Impression: Uncontrolled hypertension, Noncompliance with medication regimen Disposition: DC- TO HOME OR SELFCARE Is pt being admited?: No Does the pt Need Aspirin: No Condition: Stable Instructions: Hypertension (ED) Additional Instructions: Please take your medications as your prescribed. follow up with a primary care doctor in the next 2-3 days. given list of community resources. return to the emergency room for any new or worsening symptoms. Prescriptions: AtorvaSTATin [Lipitor] 40 mg PO QHS #30 tab amLODIPine [Norvasc] 10 mg PO DAILY #30 tab Lisinopril [Zestril TAB] 40 mg PO QDAY #30 tablet Referrals: [facility] [Provider Group] - 2-3 Days [facility] [Outside] - 2-3 Days [facility] [Outside] - 2-3 Days Time of Disposition: 17:27 Print Language: GEORGIAN
[2019-05-10 17:58] VITALS: BP 194/112
== END 2019-05-10 17:57 | disposition home or self-care (01) ==
LOC: ED 14:58
DX: I10 Essential (primary) hypertension (principal); F17.200 Nicotine dependence, unspecified, uncomplicated; Z91.14 Patient's other noncompliance with medication regimen; Z86.73 Personal history of transient ischemic attack (TIA), and cerebral infarction without residual deficits
CPT/HCPCS: 36415; 80048; 85025

== ENCOUNTER 2019-10-01 19:04 | Inpatient (IN) | payer SELFPAY ==
--- NOTE | 2019-10-01 20:45 | Emergency Department Report ---
HPI - General Chief Complaint: Weakness Time Seen by Provider: 10/01/19 20:28 - HPI HPI: Room 26 The pt is a 58 y/o F p/w a cc of Right sided weakness. The pt states she began dragging her rle and experienced weakness with the rue 2 weeks ago. She states the weakness has been constant. Pt denies dysarthria or dysphagia. Pt denies numbness ED Past Medical Hx - Past Medical History Previous Medical History?: Yes Hx Hypertension: Yes Hx CVA: Yes (left leg weakness,uses walker) Additional medical history: high cholesterol - Surgical History Additional Surgical History: denies - Family History Family history: no significant - Social History Smoking Status: Current Some Day Smoker (4 c/d) Substance Use Type: None (denies illicit drug use) - Medications Home Medications: Home Medications Medication Instructions Recorded Confirmed Last Taken Type Aspirin 325 mg PO QDAY #30 tablet 04/11/19 Unknown Rx NIFEdipine XL [Procardia Xl] 30 mg PO QDAY #30 tablet 04/11/19 10/01/19 10/01/19 08:00 Rx Pravastatin [Pravachol] 40 mg PO QHS #30 tablet 04/11/19 10/01/19 Unknown Rx AtorvaSTATin [Lipitor] 40 mg PO QHS #30 tab 05/10/19 Unknown Rx amLODIPine 10 mg PO DAILY #30 tab 05/10/19 10/01/19 Unknown Rx lisinopriL [Zestril TAB] 40 mg PO QDAY #30 tablet 05/10/19 10/01/19 10/01/19 20:10 Rx ED Review of Systems ROS: Stated complaint: WEAKNESS/ POSS STROKE SX Other details as noted in HPI Constitutional: no symptoms reported Eyes: denies: eye pain ENT: denies: throat pain Respiratory: no symptoms reported Cardiovascular: denies: chest pain Endocrine: no symptoms reported Gastrointestinal: denies: abdominal pain Genitourinary: denies: dysuria Musculoskeletal: denies: back pain Neurological: weakness. denies: headache, paresthesias Physical Exam - Physical Exam Vital Signs: Vital Signs 10/01/19 19:56 Temperature 98.0 F Pulse Rate 71 Respiratory 18 Rate Blood Pressure 185/107 Blood Pressure 185/107 [Right] O2 Sat by Pulse 100 Oximetry Physical Exam: GEN: WD WN Lying on stretcher in NAD HEENT: NCAT, EOMI NECK: Trachea midline, no nuchal rigidity CV: rrr no m/r/g PULM: CTA Bilat ABD: S/NT/ND +BS NEURO: A&O, GCS 15. NIHSS = 2 (5. motor arm drifts before full 10 secs, 6. motor leg drifts before 5 secs but doesnt hit bed) SKIN: No diaphoresis MUSC: no evidence of acute injury ED Course Vital Signs 10/01/19 19:56 Temperature 98.0 F Pulse Rate 71 Respiratory 18 Rate Blood Pressure 185/107 Blood Pressure 185/107 [Right] O2 Sat by Pulse 100 Oximetry ED Medical Decision Making - Lab Data Result diagrams: 10/01/19 21:00 10/01/19 21:00 Laboratory Tests 10/01/19 10/01/19 10/01/19 21:00 21:00 21:00 WBC 8.2 RBC 5.16 H Hgb 15.3 H Hct 45.9 H MCV 89 MCH 30 MCHC 33 RDW 15.1 Plt Count 282 Lymph % (Auto) 20.1 [place] % (Auto) 5.4 Eos % (Auto) 1.2 Baso % (Auto) 0.8 Lymph # 1.6 [place] # 0.4 Eos # 0.1 Baso # 0.1 Seg Neutrophils % 72.5 H Seg Neutrophils # 5.9 PT 12.8 INR 0.95 APTT 29.9 Thrombin Time 17.4 Sodium 145 Potassium 3.6 Chloride 105.9 Carbon Dioxide 27 Anion Gap 16 BUN 18 H Creatinine 1.1 Estimated GFR > 60 BUN/Creatinine Ratio 16 Glucose 105 H Calcium 9.5 - EKG Data -: EKG Interpreted by Co EKG shows normal: sinus rhythm Rate: normal - EKG Data Interpretation: nonspecific ST-T wave karen - Radiology Data Radiology results: report reviewed (ct head), image reviewed (ct head) [facility], [place] [address] [place] [address] Cat Scan Report Signed Patient: TAIWO ARCEO MR#: [id number] : 1960 Acct:[id number] Age/Sex: 58 / F ADM Date: 10/01/19 Loc: ED Attending Dr: Ordering Physician: KIRBY GIL MD Date of Service: 10/01/19 Procedure(s): CT head/brain wo con Accession Number(s): [id number] cc: KIRBY GIL MD NONENHANCED CT SCAN OF THE HEAD: INDICATION / CLINICAL INFORMATION: 58 years Female; right sided weakness x 2 weeks. TECHNIQUE: Routine CT head without contrast. All CT scans at this location are performed using CT dose reduction for ALARA by means of automated exposure control. COMPARISON: MRI scan from April 2013 is not available for comparison FINDINGS: BRAIN / INTRACRANIAL CONTENTS: No intracerebral hemorrhage; no stroke mimics No acute hemorrhage, mass effect, midline shift, hydrocephalus, or acute, large territorial infarct. Chronic lacune seen in both basal ganglia. Extensive periventricular low attenuation areas are seen due to chronic microvascular angiopathy. Chronic ischemic changes are seen in the naeem and in the cerebellar hemispheres CRANIOCERVICAL JUNCTION: No significant abnormality. ORBITS: No significant abnormality of visualized orbits. SINUSES / MASTOIDS: No significant abnormality of the visualized paranasal sinuses or mastoid air cells. ADDITIONAL FINDINGS: None. IMPRESSION: No acute parenchymal lesion in the brain; chronic lacune in both basal ganglia; extensive white matter low attenuation areas in both cerebral hemispheres due to microvascular angiopathy. Signer Name: Petra Johnson MD Signed: 10/01/2019 9:25 PM Workstation Name: [id number] Transcribed By: BS Dictated By: Petra Arizmendi MD Electronically Authenticated By: Petra Arizmendi MD Signed Date/Time: 10/01/192124 DD/ 19 TD/TT: - Differential Diagnosis CVA Critical care attestation.: If time is entered above; I have spent that time in minutes in the direct care of this critically ill patient, excluding procedure time. ED Disposition Clinical Impression: CVA (cerebral vascular accident) Disposition: 09 OP ADMIT IP TO THIS HOSP Is pt being admited?: Yes Does the pt Need Aspirin: Yes Condition: Fair Time of Disposition: 21:34 (Hospitalist paged (Dr Hendrix))
[2019-10-01 21:10] LABS: Basophils # (Auto) 0.1 K/mm3 (0.0-0.1); Basophils % (Auto) 0.8 % (0.0-1.8); Eosinophils # (Auto) 0.1 K/mm3 (0.0-0.4); Eosinophils % (Auto) 1.2 % (0.0-4.3); Hematocrit 45.9 % (30.3-42.9); Hemoglobin 15.3 gm/dl (10.1-14.3); Lymphocytes # (Auto) 1.6 K/mm3 (1.2-5.4); Lymphocytes % (Auto) 20.1 % (13.4-35.0); Mean Corpuscular HGB Conc 33 % (30-34); Mean Corpuscular Volume 89 fl (79-97); Monocytes # (Auto) 0.4 K/mm3 (0.0-0.8); Monocytes % (Auto) 5.4 % (0.0-7.3); Platelet Count 282 K/mm3 (140-440); Red Blood Count 5.16 M/mm3 (3.65-5.03); Red Cell Distribution Width 15.1 % (13.2-15.2)
[2019-10-01 21:29] LABS: INR 0.95 (0.87-1.13); Partial Thromboplastin Time 29.9 Sec. (24.2-36.6)
--- NOTE | 2019-10-01 21:29 | Cat Scan Report ---
NONENHANCED CT SCAN OF THE HEAD: INDICATION / CLINICAL INFORMATION: 58 years Female; right sided weakness x 2 weeks. TECHNIQUE: Routine CT head without contrast. All CT scans at this location are performed using CT dos e reduction for ALARA by means of automated exposure control. COMPARISON: MRI scan from April 2013 is not available for comparison FINDINGS: BRAIN / INTRACRANIAL CONTENTS: No intracerebral hemorrhage; no stroke mimics No acute hemorrhage, mass effect, midline shift, hydrocephalus, or acute, large territorial infarct. Chronic lacune seen in both basal ganglia. Extensive periventricular low attenuation areas are seen due to chronic microvascular angiopathy. Chronic ischemic changes are seen in the naeem and in the cerebellar hemispheres CRANIOCERVICAL JUNCTION: No significant abnormality. ORBITS: No significant abnormality of visualized orbits. SINUSES / MASTOIDS: No significant abnormality of the visualized paranasal sinuses or mastoid air layo ls. ADDITIONAL FINDINGS: None. IMPRESSION: No acute parenchymal lesion in the brain; chronic lacune in both basal ganglia; extensive white matte r low attenuation areas in both cerebral hemispheres due to microvascular angiopathy. Signer Name: Petra Johnson MD Signed: 10/01/2019 9:25 PM Workstation Name: [id number]
[2019-10-01 21:30] LABS: BUN/Creatinine Ratio 16; Blood Urea Nitrogen 18 mg/dL (7-17); Calcium 9.5 mg/dL (8.4-10.2); Hemolysis Index 16
[2019-10-01] MEDS ORDERED: ASPIRIN 325 MG TAB PO ONE (21:30)
[2019-10-01 21:31] LABS: Thrombin Time 17.4 Sec. (15.1-19.6)
[2019-10-01] MEDS ORDERED: ALBUTEROL 2.5 MG/3 ML NEBU IH PRN (22:45)
[2019-10-01] MEDS ORDERED: METOCLOPRAMIDE 10 MG TAB PO PRN (22:45)
[2019-10-01] MEDS ORDERED: ACETAMINOPHEN 325 MG TAB PO PRN (22:45)
[2019-10-01] MEDS ORDERED: ONDANSETRON 4 MG/2 ML INJ IV PRN (22:45)
[2019-10-01] MEDS ORDERED: SODIUM CHLORIDE 0.45% 1000 ML 1,000 ML IV SCH (23:00)
--- NOTE | 2019-10-01 23:25 | History and Physical Report ---
History of Present Illness Date of examination: 10/01/19 Date of admission: 10/01/2019 Chief complaint: Right-sided weakness, suspicion of stroke History of present illness: 58-year-old -[place] female who is an ongoing smoker with history of hypertension, CVA with left-sided residual weakness, HLD who presents to [facility] ED with complaints of right-sided weakness for the past 2 weeks. Patient states that she has had right upper extremity and right lower extremity weakness for the past 2 weeks. She has been dragging her right lower extremity with ambulat ion for the past 2 weeks. She thinks that she might of had a stroke but is not sure. She admits to being noncompliant with her antihypertensive meds and continues to smoke cigarettes. She has left-sided residual weakness from previous CVA. She decided to come in for further evaluation since her symptoms have not resolved. Denies aphasia, dysarthria, headache, visual changes, fever, or recent sick contact. Since patient symptoms have been present for 2 weeks telemetry neurology was not consulted. Will admit and consult inpatient neurology for further evaluation and treatment. Past History Past Medical History: hypertension, hyperlipidemia, stroke (Left-sided residual weakness) Past Surgical History: No surgical history Social history: lives with family, smoking (Smokes 1 pack/day) Family history: no significant family history Medications and Allergies Allergies Allergy/AdvReac Type Severity Reaction Status Date / Time No Known Allergies Allergy Verified 12/25/18 22:28 Home Medications Medication Instructions Recorded Confirmed Last Taken Type Aspirin 325 mg PO QDAY #30 tablet 04/11/19 Unknown Rx NIFEdipine XL [Procardia Xl] 30 mg PO QDAY #30 tablet 04/11/19 10/01/19 10/01/19 08:00 Rx Pravastatin [Pravachol] 40 mg PO QHS #30 tablet 04/11/19 10/01/19 Unknown Rx AtorvaSTATin [Lipitor] 40 mg PO QHS #30 tab 05/10/19 Unknown Rx amLODIPine 10 mg PO DAILY #30 tab 05/10/19 10/01/19 Unknown Rx lisinopriL [Zestril TAB] 40 mg PO QDAY #30 tablet 05/10/19 10/01/19 10/01/19 20:10 Rx Active Meds: Active Medications Acetaminophen (Tylenol) 650 mg PO Q4H PRN PRN Reason: Pain, Mild (1-3) Albuterol (Proventil) 2.5 mg IH Q3HRT PRN PRN Reason: Shortness Of Breath Amlodipine Besylate (Amlodipine) 10 mg PO DAILY [facility] Aspirin (Aspirin) 325 mg PO QDAY FREYA Atorvastatin Calcium (Lipitor) 40 mg PO QHS FREYA Docusate Sodium (Colace) 100 mg PO BID FREYA Heparin Sodium (Porcine) (Heparin) 5,000 unit SUB-Q Q12HR FREYA Hydralazine HCl (Apresoline) 10 mg IV Q4HR PRN PRN Reason: Blood Pressure Sodium Chloride (Nacl 0.45% 1000 Ml) 1,000 mls @ 75 mls/hr IV DIRECT FREYA Stop: 10/02/19 11:00 Lisinopril (Zestril) 40 mg PO QDAY FREYA Metoclopramide HCl (Reglan) 10 mg PO Q6H PRN PRN Reason: Nausea And Vomiting Ondansetron HCl (Zofran) 4 mg IV Q8H PRN PRN Reason: Nausea And Vomiting Sodium Chloride (Sodium Chloride Flush Syringe 10 Ml) 10 ml IV PRN PRN PRN Reason: LINE FLUSH Review of Systems All systems: negative Cardiovascular: high blood pressure Neurological: other (Right upper extremity weakness x2 weeks) Exam - Physical Exam Narrative exam: Physical exam General appearance: Present: No acute distress, alert and oriented 3, adult female - EENT Eyes: Present: PERRL, EOM intact ENT: hearing intact, missing teeth - Neck Neck: Present: supple, normal ROM - Respiratory Respiratory effort: Non-labored Respiratory: Diminished bases - Cardiovascular Heart rate: 70(bpm) Rhythm: Sinus rhythm, nonspecific T wave abnormalities Heart Sounds: Present: S1 & S2. Absent: rub, click - Extremities Extremities: no ischemia, pulses intact, - Peripheral Assessment Peripheral Pulses: within normal limits - Abdominal General gastrointestinal: soft, non-tender, normal bowel sounds - Integumentary Integumentary: Present: warm, dry - Musculoskeletal Musculoskeletal: Able to move all extremities, left-sided residual weakness from previous CVA, right upper extremity 4/5 motor strength -Neurological Neurological: CN II-XII intact - Psychiatric Psychiatric: cooperative - Constitutional Vitals: Temp Pulse Resp BP Pulse Ox 98.0 F 68 19 180/107 94 10/01/19 19:56 10/01/19 22:00 10/01/19 22:00 10/01/19 22:00 10/01/19 22:00 Results - Labs CBC & Chem 7: 10/01/19 21:00 10/01/19 21:00 Labs: Laboratory Last Values WBC 8.2 K/mm3 (4.5-11.0) 10/01/19 21:00 RBC 5.16 M/mm3 (3.65-5.03) H 10/01/19 21:00 Hgb 15.3 gm/dl (10.1-14.3) H 10/01/19 21:00 Hct 45.9 % (30.3-42.9) H 10/01/19 21:00 MCV 89 fl (79-97) 10/01/19 21:00 MCH 30 pg (28-32) 10/01/19 21:00 MCHC 33 % (30-34) 10/01/19 21:00 RDW 15.1 % (13.2-15.2) 10/01/19 21:00 Plt Count 282 K/mm3 (140-440) 10/01/19 21:00 Lymph % (Auto) 20.1 % (13.4-35.0) 10/01/19 21:00 [place] % (Auto) 5.4 % (0.0-7.3) 10/01/19 21:00 Eos % (Auto) 1.2 % (0.0-4.3) 10/01/19 21:00 Baso % (Auto) 0.8 % (0.0-1.8) 10/01/19 21:00 Lymph # 1.6 K/mm3 (1.2-5.4) 10/01/19 21:00 [place] # 0.4 K/mm3 (0.0-0.8) 10/01/19 21:00 Eos # 0.1 K/mm3 (0.0-0.4) 10/01/19 21:00 Baso # 0.1 K/mm3 (0.0-0.1) 10/01/19 21:00 Seg Neutrophils % 72.5 % (40.0-70.0) H 10/01/19 21:00 Seg Neutrophils # 5.9 K/mm3 (1.8-7.7) 10/01/19 21:00 PT 12.8 Sec. (12.2-14.9) 10/01/19 21:00 INR 0.95 (0.87-1.13) 10/01/19 21:00 APTT 29.9 Sec. (24.2-36.6) 10/01/19 21:00 Thrombin Time 17.4 Sec. (15.1-19.6) 10/01/19 21:00 Sodium 145 mmol/L (137-145) 10/01/19 21:00 Potassium 3.6 mmol/L (3.6-5.0) 10/01/19 21:00 Chloride 105.9 mmol/L (98-107) 10/01/19 21:00 Carbon Dioxide 27 mmol/L (22-30) 10/01/19 21:00 Anion Gap 16 mmol/L 10/01/19 21:00 BUN 18 mg/dL (7-17) H 10/01/19 21:00 Creatinine 1.1 mg/dL (0.7-1.2) 10/01/19 21:00 Estimated GFR > 60 ml/min 10/01/19 21:00 BUN/Creatinine Ratio 16 % 10/01/19 21:00 Glucose 105 mg/dL (65-100) H 10/01/19 21:00 Calcium 9.5 mg/dL (8.4-10.2) 10/01/19 21:00 - Imaging and Cardiology Imaging and Cardiology: CT Head: FINDINGS: BRAIN / INTRACRANIAL CONTENTS: No intracerebral hemorrhage; no stroke mimics No acute hemorrhage, mass effect, midline shift, hydrocephalus, or acute, large territorial infarct. Chronic lacune seen in both basal ganglia. Extensive periventricular low attenuation areas are seen due to chronic microvascular angiopathy. Chronic ischemic changes are seen in the naeem and in the cerebellar hemispheres CRANIOCERVICAL JUNCTION: No significant abnormality. ORBITS: No significant abnormality of visualized orbits. SINUSES / MASTOIDS: No significant abnormality of the visualized paranasal sinuses or mastoid air cells. ADDITIONAL FINDINGS: None. IMPRESSION: No acute parenchymal lesion in the brain; chronic lacune in both basal ganglia; extensive white matter low attenuation areas in both cerebral hemispheres due to microvascular angiopathy. Assessment and Plan Assessment and plan: 58-year-old -[place] female who is an ongoing smoker with history of hypertension, CVA with left-sided residual weakness, HLD who presents to [facility] ED with complaints of right-sided weakness for the past 2 weeks. R/O CVA -CT Head shows evidence of remote left cerebellar infarction -Hx of CVA with left-sided residual weakness -MRI/ MRA Head, Echo pending -Neurology consulted -Neuro Checks -PT/OT eval pending -Lipid panel pending -On ASA and statin -Continue supportive care Hypertensive urgency -BP on admission 185/107 -Hx Hypertension -Noncompliant with medication -Continue to monitor BP -Resume home antihypertensive meds to optimize BP -IV antihypertensive when necessary Dehydration -Hemoglobin 15.3 -BUN 18 -Gentle hydration with IVF Tobacco abuse -Current every day smoker -Smokes 1 pack a day -Counseled for cessation for 10 minutes -Nicotine patch when necessary DVT PPX -On Heparin Advance Directives: No VTE prophylaxis?: Chemical Plan of care discussed with patient/family: Yes
[2019-10-01] MEDS: hydrALAZINE 20 MG/1 ML INJ IV PRN (23:29)
[2019-10-02 00:27] LABS: Creatine Kinase MB < 1.0 ng/mL (0.0-4.0)
[2019-10-02 06:45] LABS: Creatine Kinase MB < 1.0 ng/mL (0.0-4.0)
[2019-10-02 07:19] LABS: Chol/HDL Ratio 4.02 %
--- NOTE | 2019-10-02 09:21 | Vascular Lab Report ---
BILATERAL CAROTID DOPPLER ULTRASOUND INDICATION : stroke TECHNIQUE: Grayscale and color Doppler imaging performed through the neck. COMPARISON: None FINDINGS: Right: There is mild partially calcified plaques in the mid CCA and proximal ICA. Peak systolic rangel ocity in the CCA is 59 cm/s with end-diastolic velocity of 19 cm/s. Peak systolic velocity in the pro ximal ICA is 63 cm/s with end-diastolic velocity of 17 cm/s. ICA to CCA ratio is less than 2. There i s antegrade flow in the ECA and the vertebral artery. Left: There is mild partially calcified plaques at the mid CCA and carotid bulb. Peak systolic veloci ty in the CCA is 58 cm/s with end-diastolic velocity of 17 cm/s. Peak systolic velocity in the proxim al ICA is 57 cm/s with end-diastolic velocity of 17 cm/s. ICA to CCA ratio is less than 2. There is a ntegrade flow in the ECA and the vertebral artery. IMPRESSION: No hemodynamically significant stenosis by NASCET criteria. There is less than 50% lumina l narrowing in both carotid systems by Doppler velocities. Mild to moderate calcific plaques are note d bilaterally. Signer Name: Armaan Metzger Jr, MD Signed: 10/02/2019 9:16 AM Workstation Name: [id number]
[2019-10-02] MEDS ORDERED: NIFEdipine XL 30 MG TAB PO SCH (10:00)
--- NOTE | 2019-10-02 11:56 | Magnetic Resonance Report ---
MRA HEAD WITHOUT CONTRAST HISTORY: Cerebrovascular accident. COMPARISON: none TECHNIQUE: Routine MRA of the head performed. 3-D/MIP reformats postprocessed. CONTRAST: none FINDINGS: MRA HEAD: OVERVIEW: There is no evidence large vessel occlusion. There is no evidence of aneurysm or other vasc ular malformation. Intracranial vertebral arteries: Left vertebral artery is dominant. Both vertebral arteries contribut e to the basilar artery origin. Basilar artery: No significant abnormality. Posterior cerebral arteries: A large right posterior communicating arteries associated with a hypopla stic P1 segment of the right posterior cerebral artery. Posterior cerebral arteries otherwise have an unremarkable appearance. Intracranial internal carotid arteries: Irregularity of contour is seen in the vertical petrous and c avernous segments of the internal carotid artery suggesting the presence of intercranial atherosclero tic disease without definite stenosis. Anterior cerebral arteries: No abnormalities. Middle cerebral arteries: Irregularity of the M1 segments of both middle cerebral artery suggest the possibility of intercranial atherosclerotic disease. Visualized insular and opercular branches of the middle cerebral arteries have an unremarkable appearance. Additional findings: Evaluation of the brain parenchyma is limited on this study but there is evidenc e of multifocal remote small deep infarctions in a bilateral gangliocapsular distribution. In additio n punctate signal voids are seen within the naeem, both cerebellar hemispheres, basal ganglia and both cerebral hemispheres compatible with multiple remote hypertensive microhemorrhages. Further evaluati on with MRI brain is suggested. IMPRESSION: 1. Findings indicate intercranial atherosclerotic disease along the internal carotid arteries and mid dle cerebral arteries bilaterally. 2. Findings within the brain parenchyma indicate likely multifocal hypertensive microhemorrhages. Mul tifocal remote small deep infarctions are suspected. Correlation with magnetic resonance imaging of t he brain is suggested. Signer Name: Elvin Bolaños MD Signed: 10/02/2019 11:52 AM Workstation Name: [id number]
[2019-10-02] MEDS: DOCUSATE SODIUM 100 MG CAP PO SCH ×2 (11:59→21:51)
[2019-10-02] MEDS: amLODIPine 10 MG TAB PO SCH (11:59)
[2019-10-02] MEDS: ASPIRIN 325 MG TAB PO SCH (11:59)
[2019-10-02] MEDS: NICOTINE 14 MG/24 HR PATCH TD SCH (12:00)
[2019-10-02] MEDS: HEPARIN 5,000 UNIT/1 ML VIAL SUB-Q SCH ×2 (12:00→21:58)
[2019-10-02] MEDS: LISINOPRIL 40 MG TAB PO SCH (12:00)
--- NOTE | 2019-10-02 12:23 | Consultation ---
History of Present Illness Consult date: 10/02/19 Reason for Consult: new onset right side weakness History of present illness: 58-year-old -Japanese female who is an ongoing smoker with history of hypertension, CVA with left-sided residual weakness, HLD who presents to [facility] ED with complaints of right-sided weakness for the past 2 weeks. Patient states that she has had right upper extremity and right lower extremity weakness for the past 2 weeks. She has been dragging her right lower extremity with ambulation for the past 2 weeks. She thinks that she might of had a stroke but is not sure. She admits to being noncompliant with her antihypertensive meds and ASA and continues to smoke cigarettes #4 cigarett daily , no alcohol . She has left-sided residual weakness from previous CVA. She decided to come in for further evaluation since her symptoms have not resolved. Denies aphasia, dysarthria, headache, visual changes, fever, or recent sick contact. Since patient symptoms have been present for 2 weeks telemetry neurology was not consulted. On evaluation in ER BP #185/107 Ct brain is remarkable multilacunar infarct in both BG MRA brain is remarkable for intracranial irregularities noted in cavernous segment bilateral , and M1 irregularities in both MCA MRI brain is remarkable for Past History Past Medical History: hypertension, hyperlipidemia, stroke (Left-sided residual weakness) Past Surgical History: No surgical history Social history: lives with family, smoking (Smokes 1 pack/day) Family history: no significant family history Past History Past Medical History: hypertension, hyperlipidemia, stroke (Left-sided residual weakness) Past Surgical History: No surgical history Social history: lives with family, smoking (Smokes 1 pack/day) Family history: no significant family history Medications and Allergies Allergies Allergy/AdvReac Type Severity Reaction Status Date / Time No Known Allergies Allergy Verified 12/25/18 22:28 Home Medications Medication Instructions Recorded Confirmed Last Taken Type Aspirin 325 mg PO QDAY #30 tablet 04/11/19 10/02/19 Unknown Rx NIFEdipine XL [Procardia Xl] 30 mg PO QDAY #30 tablet 04/11/19 10/02/19 10/01/19 08:00 Rx Pravastatin [Pravachol] 40 mg PO QHS #30 tablet 04/11/19 10/02/19 Unknown Rx AtorvaSTATin [Lipitor] 40 mg PO QHS #30 tab 05/10/19 10/02/19 Unknown Rx amLODIPine 10 mg PO DAILY #30 tab 05/10/19 10/02/19 Unknown Rx lisinopriL [Zestril TAB] 40 mg PO QDAY #30 tablet 05/10/19 10/02/19 10/01/19 20:10 Rx Active Meds: Active Medications Acetaminophen (Tylenol) 650 mg PO Q4H PRN PRN Reason: Pain, Mild (1-3) Albuterol (Proventil) 2.5 mg IH Q3HRT PRN PRN Reason: Shortness Of Breath Amlodipine Besylate (Amlodipine) 10 mg PO DAILY COUNT INCLUDES THE [facility] Last Admin: 10/02/19 11:59 Dose: 10 mg Documented by: Aspirin (Aspirin) 325 mg PO QDAY COUNT INCLUDES THE [facility] Last Admin: 10/02/19 11:59 Dose: 325 mg Documented by: Atorvastatin Calcium (Lipitor) 40 mg PO QHS COUNT INCLUDES THE [facility] Docusate Sodium (Colace) 100 mg PO BID COUNT INCLUDES THE [facility] Last Admin: 10/02/19 11:59 Dose: 100 mg Documented by: Heparin Sodium (Porcine) (Heparin) 5,000 unit SUB-Q Q12HR COUNT INCLUDES THE [facility] Last Admin: 10/02/19 12:00 Dose: 5,000 unit Documented by: Hydralazine HCl (Apresoline) 10 mg IV Q4HR PRN PRN Reason: Blood Pressure Last Admin: 10/01/19 23:29 Dose: 10 mg Documented by: Lisinopril (Zestril) 40 mg PO QDAY COUNT INCLUDES THE [facility] Last Admin: 10/02/19 12:00 Dose: 40 mg Documented by: Metoclopramide HCl (Reglan) 10 mg PO Q6H PRN PRN Reason: Nausea And Vomiting Nicotine (Habitrol) 14 mg TD QDAY COUNT INCLUDES THE [facility] Last Admin: 10/02/19 12:00 Dose: 14 mg Documented by: Ondansetron HCl (Zofran) 4 mg IV Q8H PRN PRN Reason: Nausea And Vomiting Sodium Chloride (Sodium Chloride Flush Syringe 10 Ml) 10 ml IV PRN PRN PRN Reason: LINE FLUSH Review of Systems All systems: negative Physical Examination - Vital Signs Vital Signs: Vital Signs Temp Pulse Resp BP Pulse Ox 98.0 F 71 15 185/107 98 10/01/19 19:56 10/01/19 19:56 10/01/19 19:56 10/01/19 19:56 10/01/19 19:56 - Constitutional General appearance: comfortable - EENT EENT: Present: PERRL, mucous membranes moist - Respiratory Respiratory: Present: chest non-tender, lungs clear, rhonchi - Cardiovascular Cardiovascular: Present: regular rate, normal S1, normal S2 Extremities: Present: no peripheral edema bilatateraly, no clubbing, cyanosis, no inflammation - Gastrointestinal Gastrointestinal: Present: normoactive bowel sounds - Integumentary Integumentary: Present: normal - Neurologic Cranial nerve examination: PERRL, EOMI, V1/V2/V3 grossly intact, face symmetric, tongue midline, intact shoulder shrug, intact gag reflex Speech examination: intact Sensorimotor examination: intact Detailed motor examination: other (right is 3+/5 upper and lower ,left is 4-/5 upper and lower , planter is down going ,reflexes are brisk bilateral with non sustained clonus, positive barbosa sign bialteral .no sensory deficit , gait not tested) Reflexes: 3+: ankle, bicep, knee, tricep - Level of Consciousness 1a. Level of Consciousness: alert/keenly responsive - LOC Questions 1b. LOC Questions: answers 1 question correctly - LOC Command 1c. LOC Commands: performs tasks correctly - Best Gaze 2. Best Gaze: normal - Visual 3. Visual: no visual loss - Facial Palsy 4. Facial Palsy: normal symmetrical movement - Motor Arm 5a. Motor Arm Left: drift 5b. Motor Arm Right: drift - Motor Leg 6a. Motor Leg Left: no drift 6b. Motor Leg Right: drift - Limb Ataxia 7. Limb Ataxia: absent - Sensory 8. Sensory: normal - Best Language 9. Best Language: no aphasia - Dysarthria 10. Dysarthria: normal - Extinction and Inattention 11. Extinction/Inattention: no abnormality - Scoring Total Score: 4 Stroke Severity: Minor Stroke Results - Laboratory Findings CBC and BMP: 10/01/19 21:00 10/01/19 21:00 Abnormal Lab Findings: Abnormal Labs 10/01/19 10/01/19 10/02/19 21:00 21:00 06:04 RBC 5.16 H Hgb 15.3 H Hct 45.9 H Seg Neutrophils % 72.5 H BUN 18 H Glucose 105 H LDL Cholesterol Direct 138 H Assessment and Plan 1-This is 58 years old femal with long standing hx of HTN, HLP she is poorly compliant with medication hed remote CVA in last may/2019 and is left with slight left side weakness currently she is with right side weakness with no significant aphasia , Ct brain is remarkable for multilacunar infarct in BG bilateral, MRA brain is remarkable for atherosclerotic changes in both ICA/cavernous portion and bilateral MCA ,M1 MRI brain is remarkable for subacute infarct left BG and right cerebellum with multiple remote infarct noted in both BG, palak ventricular and right cerebellum finding are most likley related to intra vascular atherosclerotic / Hypertensive angiopathy with the possibility of embolic event can not be excluded. she is with poor compliance of BP medication , antilipid and or ASA. 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 might be a candidate for rehab. 11-PT evaluation will follow
--- NOTE | 2019-10-02 15:08 | Discharge Summary ---
Providers - Providers Date of Admission: 10/01/19 21:47 Attending physician: NOEMI CHADWICK MD 10/01/19 22:42 Consult to Physician [CONS] Routine Comment: Consulting Provider: ZENA CARSON Physician Instructions: Reason For Exam: neuro deficits, hx cva 10/01/19 22:45 Occupational Therapy Evaluate and Treat [CONS] Routine Comment: Reason For Exam: Neuro deficits Physical Therapy Evaluation and Treat [CONS] Routine Comment: Reason For Exam: Neuro deficits Primary care physician: COPPER PLATER Hospitalization Condition: Fair Disposition: DC-01 TO HOME OR SELFCARE Core Measure Documentation - Palliative Care Palliative Care/ Comfort Measures: Not Applicable Exam - Constitutional Vitals: Temp Pulse Resp BP Pulse Ox 97.5 F L 62 18 164/98 94 10/02/19 04:43 10/02/19 12:00 10/02/19 04:43 10/02/19 12:00 10/02/19 04:43 Plan Activity: advance as tolerated, fall precautions Diet: low fat Follow up with: TERESA SPENCE MD [Primary Care Provider] - 7 Days SHANDA MCCARTNEY MD [Staff Physician] - 7 Days Prescriptions: AtorvaSTATin [Lipitor] 80 mg PO QHS #60 tablet amLODIPine 10 mg PO DAILY #30 tab Aspirin [Aspirin BABY CHEW TAB] 81 mg PO QDAY #30 tab.chew NIFEdipine XL [Procardia Xl] 30 mg PO QDAY #30 tablet
--- NOTE | 2019-10-02 15:35 | Magnetic Resonance Report ---
MRI BRAIN WITHOUT CONTRAST INDICATION / CLINICAL INFORMATION: stroke. TECHNIQUE: Multisequence, multiplanar images were obtained. COMPARISON: CT head dated 10/01/2019 FINDINGS: CEREBRAL and CEREBELLAR HEMISPHERES: There is moderate diffuse volume loss and moderate to severe chr onic microangiopathy in the white matter. Multiple millimetric chronic focal infarcts are identified in the left basal ganglia and bilateral guan radiata. No large chronic infarct. A 4 mm focus of dif fusion restriction is identified overlying the posterior limb of the left internal capsule. A second 6 mm focus of diffusion restriction is identified in the lateral right cerebellar hemisphere. There i s no evidence for hemorrhage, mass or extra-axial fluid collection. VENTRICLES: Normal in size and configuration for age. VISUALIZED ORBITS: No significant abnormality. VISUALIZED PARANASAL SINUSES: No significant abnormality. ADDITIONAL FINDINGS: None. IMPRESSION: 2 foci of subacute ischemia are identified in the left basal ganglia and right cerebellar hemisphere as described above. This pattern is concerning for an embolic process. Advanced volume loss and chronic white matter changes. Multiple chronic millimetric infarcts as described. Signer Name: Armaan Metzger Jr, MD Signed: 10/02/2019 3:31 PM Workstation Name: [id number]
--- NOTE | 2019-10-02 15:41 | Magnetic Resonance Report ---
MRI CERVICAL SPINE WITHOUT CONTRAST INDICATION / CLINICAL INFORMATION: bilateral side weakness R/O Cervical mylopathy. TECHNIQUE: Multisequence, multiplanar images of the cervical spine were obtained. COMPARISON: None available. FINDINGS: Many of the images are slightly limited by patient motion artifact. CRANIOCERVICAL JUNCTION:No significant abnormality. ALIGNMENT: There is straightening of the normal lordosis which could be secondary to positioning or s pasm. No subluxation. VERTEBRAE:Normal marrow signal and vertebral body height for age. DISC SPACES: There is mild diffuse disc desiccation and narrowing throughout the cervical region. VISUALIZED SPINAL CORD: No significant abnormality. NARZU-CU-ALTKI ANALYSIS: C2-3: No significant abnormality C3-4: No significant abnormality C4-5: A moderate size focal midline disc protrusion is identified which exerts mass effect on the ant erior surface of the spinal cord. There is moderate left uncovertebral spurring with left neural fora aleah narrowing estimated at 50%. C5-6: Mild bilateral uncovertebral spurring. No neural foraminal narrowing. C6-7: A moderate sized central disc protrusion is identified without mass effect. No central canal or neural foraminal narrowing. C7-T1: No significant abnormality. PARASPINAL SOFT TISSUES: No significant abnormality. ADDITIONAL FINDINGS: None. IMPRESSION: Mild to moderate multilevel cervical spondylosis. Focal midline disc protrusions are identified at C4-5 and C6-7 as described. Signer Name: Armaan Metzger Jr, MD Signed: 10/02/2019 3:37 PM Workstation Name: [id number]
--- NOTE | 2019-10-02 16:04 | Progress Note ---
Hospitalist Physical - Constitutional Vitals: Temp Pulse Resp BP Pulse Ox 97.5 F L 62 18 164/98 94 10/02/19 04:43 10/02/19 12:00 10/02/19 04:43 10/02/19 12:00 10/02/19 04:43 Results - Labs CBC & Chem 7: 10/01/19 21:00 10/01/19 21:00 Labs: Laboratory Last Values WBC 8.2 K/mm3 (4.5-11.0) 10/01/19 21:00 RBC 5.16 M/mm3 (3.65-5.03) H 10/01/19 21:00 Hgb 15.3 gm/dl (10.1-14.3) H 10/01/19 21:00 Hct 45.9 % (30.3-42.9) H 10/01/19 21:00 MCV 89 fl (79-97) 10/01/19 21:00 MCH 30 pg (28-32) 10/01/19 21:00 MCHC 33 % (30-34) 10/01/19 21:00 RDW 15.1 % (13.2-15.2) 10/01/19 21:00 Plt Count 282 K/mm3 (140-440) 10/01/19 21:00 Lymph % (Auto) 20.1 % (13.4-35.0) 10/01/19 21:00 [place] % (Auto) 5.4 % (0.0-7.3) 10/01/19 21:00 Eos % (Auto) 1.2 % (0.0-4.3) 10/01/19 21:00 Baso % (Auto) 0.8 % (0.0-1.8) 10/01/19 21:00 Lymph # 1.6 K/mm3 (1.2-5.4) 10/01/19 21:00 [place] # 0.4 K/mm3 (0.0-0.8) 10/01/19 21:00 Eos # 0.1 K/mm3 (0.0-0.4) 10/01/19 21:00 Baso # 0.1 K/mm3 (0.0-0.1) 10/01/19 21:00 Seg Neutrophils % 72.5 % (40.0-70.0) H 10/01/19 21:00 Seg Neutrophils # 5.9 K/mm3 (1.8-7.7) 10/01/19 21:00 ESR 4 mm/Hr (0-20) 10/02/19 14:35 PT 12.8 Sec. (12.2-14.9) 10/01/19 21:00 INR 0.95 (0.87-1.13) 10/01/19 21:00 APTT 29.9 Sec. (24.2-36.6) 10/01/19 21:00 Thrombin Time 17.4 Sec. (15.1-19.6) 10/01/19 21:00 Sodium 145 mmol/L (137-145) 10/01/19 21:00 Potassium 3.6 mmol/L (3.6-5.0) 10/01/19 21:00 Chloride 105.9 mmol/L (98-107) 10/01/19 21:00 Carbon Dioxide 27 mmol/L (22-30) 10/01/19 21:00 Anion Gap 16 mmol/L 10/01/19 21:00 BUN 18 mg/dL (7-17) H 10/01/19 21:00 Creatinine 1.1 mg/dL (0.7-1.2) 10/01/19 21:00 Estimated GFR > 60 ml/min 10/01/19 21:00 BUN/Creatinine Ratio 16 % 10/01/19 21:00 Glucose 105 mg/dL (65-100) H 10/01/19 21:00 Calcium 9.5 mg/dL (8.4-10.2) 10/01/19 21:00 Total Creatine Kinase 48 units/L (30-135) 10/02/19 06:04 CK-MB (CK-2) < 1.0 ng/mL (0.0-4.0) 10/02/19 06:04 CK-MB (CK-2) Rel Index 2.0 (0-4) 10/02/19 06:04 Troponin T < 0.010 ng/mL (0.00-0.029) 10/02/19 06:04 Triglycerides 77 mg/dL (2-149) 10/02/19 06:04 Cholesterol 193 mg/dL (50-199) 10/02/19 06:04 LDL Cholesterol Direct 138 mg/dL (50-130) H 10/02/19 06:04 HDL Cholesterol 48 mg/dL (40-59) 10/02/19 06:04 Cholesterol/HDL Ratio 4.02 % 10/02/19 06:04 Vitamin B12 523.7 pg/mL (211-911) 10/02/19 14:35 Folate 19.02 ng/mL (7.3-26.0) 10/02/19 14:35 Active Medications - Current Medications Current Medications: Generic Name Dose Route Start Last Admin Trade Name Freq PRN Reason Stop Dose Admin Acetaminophen 650 mg 10/01/19 22:45 Tylenol PO Q4H PRN Pain, Mild (1-3) Albuterol 2.5 mg 10/01/19 22:45 Proventil IH Q3HRT PRN Shortness Of Breath Amlodipine Besylate 10 mg 10/02/19 10:00 10/02/19 11:59 Amlodipine PO 10 mg DAILY FREYA Administration Aspirin 325 mg 10/02/19 10:00 10/02/19 11:59 Aspirin PO 325 mg QDAY FREYA Administration Atorvastatin Calcium 80 mg 10/02/19 22:00 Lipitor PO QHS FREYA Docusate Sodium 100 mg 10/02/19 10:00 10/02/19 11:59 Colace PO 100 mg BID FREYA Administration Heparin Sodium (Porcine) 5,000 unit 10/02/19 10:00 10/02/19 12:00 Heparin SUB-Q 5,000 unit Q12HR FREYA Administration Hydralazine HCl 10 mg 10/01/19 22:49 10/01/19 23:29 Apresoline IV 10 mg Q4HR PRN Administration Blood Pressure Lisinopril 40 mg 10/02/19 10:00 10/02/19 12:00 Zestril PO 40 mg QDAY FREYA Administration Metoclopramide HCl 10 mg 10/01/19 22:45 Reglan PO Q6H PRN Nausea And Vomiting Nicotine 14 mg 10/02/19 10:00 10/02/19 12:00 Habitrol TD 14 mg QDAY FREYA Administration Ondansetron HCl 4 mg 10/01/19 22:45 Zofran IV Q8H PRN Nausea And Vomiting Sodium Chloride 10 ml 10/01/19 22:45 Sodium Chloride Flush Syringe 10 Ml IV PRN PRN LINE FLUSH
--- NOTE | 2019-10-02 18:07 | Progress Note ---
Assessment and Plan Assessment and plan: 58-year-old -[place] female who is an ongoing smoker with history of hypertension, CVA with left-sided residual weakness, HLD who presents to [facility] ED with complaints of right-sided weakness for the past 2 weeks. Patient states that she has had right upper extremity and right lower extremity weakness for the past 2 weeks. She has been dragging her right lower extremity with ambulation for the past 2 weeks. She thinks that she might of had a stroke but is not sure. She admits to being noncompliant with her antihypertensive meds and continues to smoke cigarettes. She has left-sided residual weakness from previous CVA. She decided to come in for further evaluation since her symptoms have not resolved. Denies aphasia, dysarthria, headache, visual changes, fever, or recent sick contact. Since patient symptoms have been present for 2 weeks telemetry neurology was not consulted. Will admit and consult inpatient neurology for further evaluation and treatment. CVA -CT Head shows evidence of remote left cerebellar infarction -Hx of CVA with left-sided residual weakness -MRI/ MRA Head, Echo pending -Neurology consulted -Neuro Checks -PT/OT eval pending -Lipid panel pending -On ASA and statin -Continue supportive care Hypertensive urgency -BP on admission 185/107 -Hx Hypertension -Noncompliant with medication -Continue to monitor BP -Resume home antihypertensive meds to optimize BP -IV antihypertensive when necessary Dehydration -Hemoglobin 15.3 -BUN 18 -Gentle hydration with IVF Tobacco abuse -Current every day smoker -Smokes 1 pack a day -Counseled for cessation for 10 minutes -Nicotine patch when necessary DVT PPX -On Heparin History Interval history: Patient seen and examined clinically stable no new complaints at this time. Hospitalist Physical - Physical exam Narrative exam: Physical exam General appearance: Present: No acute distress, alert and oriented 3, adult female - EENT Eyes: Present: PERRL, EOM intact ENT: hearing intact, missing teeth - Neck Neck: Present: supple, normal ROM - Respiratory Respiratory effort: Non-labored Respiratory: Diminished bases - Cardiovascular Heart rate: 70(bpm) Rhythm: Sinus rhythm, nonspecific T wave abnormalities Heart Sounds: Present: S1 & S2. Absent: rub, click - Extremities Extremities: no ischemia, pulses intact, - Peripheral Assessment Peripheral Pulses: within normal limits - Abdominal General gastrointestinal: soft, non-tender, normal bowel sounds - Integumentary Integumentary: Present: warm, dry - Musculoskeletal Musculoskeletal: Able to move all extremities, left-sided residual weakness from previous CVA, right upper extremity 4/5 motor strength -Neurological Neurological: CN II-XII intact - Psychiatric Psychiatric: cooperative - Constitutional Vitals: Temp Pulse Resp BP Pulse Ox 97.5 F L 62 18 164/98 94 10/02/19 04:43 10/02/19 12:00 10/02/19 04:43 10/02/19 12:00 10/02/19 04:43 Results - Labs CBC & Chem 7: 10/01/19 21:00 10/01/19 21:00 Labs: Laboratory Last Values WBC 8.2 K/mm3 (4.5-11.0) 10/01/19 21:00 RBC 5.16 M/mm3 (3.65-5.03) H 10/01/19 21:00 Hgb 15.3 gm/dl (10.1-14.3) H 10/01/19 21:00 Hct 45.9 % (30.3-42.9) H 10/01/19 21:00 MCV 89 fl (79-97) 10/01/19 21:00 MCH 30 pg (28-32) 10/01/19 21:00 MCHC 33 % (30-34) 10/01/19 21:00 RDW 15.1 % (13.2-15.2) 10/01/19 21:00 Plt Count 282 K/mm3 (140-440) 10/01/19 21:00 Lymph % (Auto) 20.1 % (13.4-35.0) 10/01/19 21:00 [place] % (Auto) 5.4 % (0.0-7.3) 10/01/19 21:00 Eos % (Auto) 1.2 % (0.0-4.3) 10/01/19 21:00 Baso % (Auto) 0.8 % (0.0-1.8) 10/01/19 21:00 Lymph # 1.6 K/mm3 (1.2-5.4) 10/01/19 21:00 [place] # 0.4 K/mm3 (0.0-0.8) 10/01/19 21:00 Eos # 0.1 K/mm3 (0.0-0.4) 10/01/19 21:00 Baso # 0.1 K/mm3 (0.0-0.1) 10/01/19 21:00 Seg Neutrophils % 72.5 % (40.0-70.0) H 10/01/19 21:00 Seg Neutrophils # 5.9 K/mm3 (1.8-7.7) 10/01/19 21:00 ESR 4 mm/Hr (0-20) 10/02/19 14:35 PT 12.8 Sec. (12.2-14.9) 10/01/19 21:00 INR 0.95 (0.87-1.13) 10/01/19 21:00 APTT 29.9 Sec. (24.2-36.6) 10/01/19 21:00 Thrombin Time 17.4 Sec. (15.1-19.6) 10/01/19 21:00 Sodium 145 mmol/L (137-145) 10/01/19 21:00 Potassium 3.6 mmol/L (3.6-5.0) 10/01/19 21:00 Chloride 105.9 mmol/L (98-107) 10/01/19 21:00 Carbon Dioxide 27 mmol/L (22-30) 10/01/19 21:00 Anion Gap 16 mmol/L 10/01/19 21:00 BUN 18 mg/dL (7-17) H 10/01/19 21:00 Creatinine 1.1 mg/dL (0.7-1.2) 10/01/19 21:00 Estimated GFR > 60 ml/min 10/01/19 21:00 BUN/Creatinine Ratio 16 % 10/01/19 21:00 Glucose 105 mg/dL (65-100) H 10/01/19 21:00 Calcium 9.5 mg/dL (8.4-10.2) 10/01/19 21:00 Total Creatine Kinase 48 units/L (30-135) 10/02/19 06:04 CK-MB (CK-2) < 1.0 ng/mL (0.0-4.0) 10/02/19 06:04 CK-MB (CK-2) Rel Index 2.0 (0-4) 10/02/19 06:04 Troponin T < 0.010 ng/mL (0.00-0.029) 10/02/19 06:04 Triglycerides 77 mg/dL (2-149) 10/02/19 06:04 Cholesterol 193 mg/dL (50-199) 10/02/19 06:04 LDL Cholesterol Direct 138 mg/dL (50-130) H 10/02/19 06:04 HDL Cholesterol 48 mg/dL (40-59) 10/02/19 06:04 Cholesterol/HDL Ratio 4.02 % 10/02/19 06:04 Vitamin B12 523.7 pg/mL (211-911) 10/02/19 14:35 Folate 19.02 ng/mL (7.3-26.0) 10/02/19 14:35 Active Medications - Current Medications Current Medications: Generic Name Dose Route Start Last Admin Trade Name Freq PRN Reason Stop Dose Admin Acetaminophen 650 mg 10/01/19 22:45 Tylenol PO Q4H PRN Pain, Mild (1-3) Albuterol 2.5 mg 10/01/19 22:45 Proventil IH Q3HRT PRN Shortness Of Breath Amlodipine Besylate 10 mg 10/02/19 10:00 10/02/19 11:59 Amlodipine PO 10 mg DAILY FREYA Administration Aspirin 325 mg 10/02/19 10:00 10/02/19 11:59 Aspirin PO 325 mg QDAY FREYA Administration Atorvastatin Calcium 80 mg 10/02/19 22:00 Lipitor PO QHS FREYA Docusate Sodium 100 mg 10/02/19 10:00 10/02/19 11:59 Colace PO 100 mg BID FREYA Administration Heparin Sodium (Porcine) 5,000 unit 10/02/19 10:00 10/02/19 12:00 Heparin SUB-Q 5,000 unit Q12HR FREYA Administration Hydralazine HCl 10 mg 10/01/19 22:49 10/01/19 23:29 Apresoline IV 10 mg Q4HR PRN Administration Blood Pressure Lisinopril 40 mg 10/02/19 10:00 10/02/19 12:00 Zestril PO 40 mg QDAY FREYA Administration Metoclopramide HCl 10 mg 10/01/19 22:45 Reglan PO Q6H PRN Nausea And Vomiting Nicotine 14 mg 10/02/19 10:00 10/02/19 12:00 Habitrol TD 14 mg QDAY FREYA Administration Ondansetron HCl 4 mg 10/01/19 22:45 Zofran IV Q8H PRN Nausea And Vomiting Sodium Chloride 10 ml 10/01/19 22:45 Sodium Chloride Flush Syringe 10 Ml IV PRN PRN LINE FLUSH
[2019-10-02] MEDS: hydrALAZINE 20 MG/1 ML INJ IV PRN (21:52)
[2019-10-02] MEDS ORDERED: PRAVASTATIN 40 MG TAB PO SCH (22:00)
[2019-10-03] MEDS: hydrALAZINE 20 MG/1 ML INJ IV PRN (04:23)
[2019-10-03] MEDS ORDERED: hydrALAZINE 25 MG TAB PO SCH (09:00)
[2019-10-03] MEDS: amLODIPine 10 MG TAB PO SCH (09:23)
[2019-10-03] MEDS: NICOTINE 14 MG/24 HR PATCH TD SCH (09:23)
[2019-10-03] MEDS: ASPIRIN 325 MG TAB PO SCH (09:23)
[2019-10-03] MEDS: HEPARIN 5,000 UNIT/1 ML VIAL SUB-Q SCH (09:24)
[2019-10-03] MEDS: DOCUSATE SODIUM 100 MG CAP PO SCH (09:24)
[2019-10-03] MEDS: LISINOPRIL 40 MG TAB PO SCH (09:24)
[2019-10-03] MEDS ORDERED: hydroCHLOROthiazide 25 MG TAB PO SCH ×2 (10:00)
--- NOTE | 2019-10-03 11:36 | Progress Note ---
Assessment and Plan 1-This is 58 years old femal with long standing hx of HTN, HLP she is poorly compliant with medication hed remote CVA in last may/2019 and is left with slight left side weakness currently she is with right side weakness with no significant aphasia , Ct brain is remarkable for multilacunar infarct in BG bilateral, MRA brain is remarkable for atherosclerotic changes in both ICA/cavernous portion and bilateral MCA ,M1 MRI brain is remarkable for subacute infarct left BG and right cerebellum with multiple remote infarct noted in both BG, palak ventricular and right cerebellum finding are most likley related to intra vascular atherosclerotic / Hypertensive angiopathy with the possibility of embolic event can not be excluded. she is with poor compliance of BP medication , antilipid and or ASA. 2- HTN poorly controlled with poor compliance with medication 3- HLP with LDL#138 4- Smoking 5- Bilateral brisk reflexes with the possibility of underlying cervical lesion can not be excluded 6- Mild memory difficulty with the possibility of multi infarct dementia can not be excluded PLAN 1- Better control of BP <140/85 2- Stop smoking 3- Lipitor 80 mg daily and ASA 81 mg daily 4- B12,Folate,ESR,noted 5- Stop smoking 6- cardiac monitor technician R/O AF and consider MCOT , and review Echo EF55-60% with TR,MR 7- comply with BP medications 8- MRI cervical spine remarkable for disc C4-5 with slight pressure on spinal cord L>R 9- DVT precaution 10- pt. might be a candidate for rehab. 11-PT evaluation will sign off Subjective Date of service: 10/03/19 Interval history: right side weakness is better , she is started on BP medications and lipitor BP [id number] MRI C spine is noted with remarkable C4-5 disc disease ECHO Ef55-60% with MR and TR Objective - Vital Sign Vital Signs - 12hr 10/03/19 10/03/19 10/03/19 00:20 04:05 05:00 Temperature 98.2 F 98.1 F Pulse Rate 95 H 85 85 Respiratory 18 18 Rate Blood Pressure 152/86 178/105 O2 Sat by Pulse 95 96 Oximetry 10/03/19 10/03/19 10/03/19 09:22 09:23 09:24 Temperature Pulse Rate 75 75 75 Respiratory Rate Blood Pressure 165/105 165/105 165/105 O2 Sat by Pulse Oximetry - General Apperance Constitutional: comfortable - EENT EENT: PERRL, mucous membranes moist - Respiratory Respiratory: lungs clear, rhonchi - Cardiovascular Cardiovascular: regular rate, normal S1, normal S2 Extremities: no peripheral edema bilat, no clubbing, cyanosis, no inflammation - Gastrointestinal Gastrointestinal: normoactive bowel sounds - Integumentary Integumentary: normal - Neurologic Cranial nerve examination: PERRL, EOMI, V1/V2/V3 grossly intact Speech examination: intact Detailed motor examination: other (residual right side weakness 4-/5 , left side is better 4+/5 ) Reflexes: 3+: ankle, bicep, knee, tricep Cerebellar examination: other (unsteady) - Laboratory Findings CBC and BMP: 10/01/19 21:00 10/01/19 21:00 Abnormal Lab Findings: Abnormal Labs 10/01/19 10/01/19 10/02/19 21:00 21:00 06:04 RBC 5.16 H Hgb 15.3 H Hct 45.9 H Seg Neutrophils % 72.5 H BUN 18 H Glucose 105 H LDL Cholesterol Direct 138 H
[2019-10-03] MEDS ORDERED: hydrALAZINE 100 MG TAB PO SCH (12:00)
[2019-10-03 12:56] VITALS: BP 155/93
--- NOTE | 2019-10-03 16:19 | Discharge Summary ---
Providers - Providers Date of Admission: 10/02/19 15:09 Attending physician: NOEMI CHADWICK MD 10/01/19 22:42 Consult to Physician [CONS] Routine Comment: Consulting Provider: ZENA CARSON Physician Instructions: Reason For Exam: neuro deficits, hx cva 10/01/19 22:45 Occupational Therapy Evaluate and Treat [CONS] Routine Comment: Reason For Exam: Neuro deficits Physical Therapy Evaluation and Treat [CONS] Routine Comment: Reason For Exam: Neuro deficits Primary care physician: GUT DROPPER Hospitalization Reason for admission: cva Condition: Stable Hospital course: 58-year-old -[place] female who is an ongoing smoker with history of hypertension, CVA with left-sided residual weakness, HLD who presents to [facility] ED with complaints of right-sided weakness for the past 2 weeks. CVA 1-This is 58 years old femal with long standing hx of HTN, HLP she is poorly compliant with medication hed remote CVA in last may/2019 and is left with slight left side weakness currently she is with right side weakness with no significant aphasia , Ct brain is remarkable for multilacunar infarct in BG bilateral, MRA brain is remarkable for atherosclerotic changes in both ICA/cavernous portion and bilateral MCA ,M1 MRI brain is remarkable for subacute infarct left BG and right cerebellum with multiple remote infarct noted in both BG, palak ventricular and right cerebellum finding are most likley related to intra vascular atherosclerotic / Hypertensive angiopathy with the possibility of embolic event can not be excluded. she is with poor compliance of BP medication , antilipid and or ASA. 2- HTN poorly controlled with poor compliance with medication 3- HLP with LDL#138 4- Smoking 5- Bilateral brisk reflexes with the possibility of underlying cervical lesion can not be excluded 6- Mild memory difficulty with the possibility of multi infarct dementia can not be excluded PLAN 1- Better control of BP <140/85 2- Stop smoking- counselling given for 15 mins 3- Lipitor 80 mg daily and ASA 81 mg daily started and discharged with prescription 4- B12,Folate,ESR,noted 5- Stop smoking 6- monitoring tech R/O AF and consider MCOT , and review Echo EF55-60% with TR,MR 7- comply with BP medications 8- MRI cervical spine remarkable for disc C4-5 with slight pressure on spinal cord L>R 9- event monitor recommneded adn cardiology referral given, discussed with family importance of this 10- Meds sent to [facility] pharmacy with coupons provided. compliance stressed and patient and family verbalized understanding Disposition: DC-01 TO HOME OR SELFCARE Time spent for discharge: 35 mins Core Measure Documentation - Palliative Care Palliative Care/ Comfort Measures: Not Applicable - Core Measures Any of the following diagnoses?: stroke - Stroke Discharge Requirements Statin for LDL = or >70 mg/dl on DC: Yes Anticoag for atrial fib/atrial flutter: Not Applicable Antithrombotic for ischemic stroke: Yes Exam - Physical Exam Narrative exam: Physical exam General appearance: Present: No acute distress, alert and oriented 3, adult female - EENT Eyes: Present: PERRL, EOM intact ENT: hearing intact, missing teeth - Neck Neck: Present: supple, normal ROM - Respiratory Respiratory effort: Non-labored Respiratory: Diminished bases - Cardiovascular Heart rate: 70(bpm) Rhythm: Sinus rhythm, nonspecific T wave abnormalities Heart Sounds: Present: S1 & S2. Absent: rub, click - Extremities Extremities: no ischemia, pulses intact, - Peripheral Assessment Peripheral Pulses: within normal limits - Abdominal General gastrointestinal: soft, non-tender, normal bowel sounds - Integumentary Integumentary: Present: warm, dry - Musculoskeletal Musculoskeletal: Able to move all extremities, left-sided residual weakness from previous CVA, right upper extremity 4/5 motor strength -Neurological Neurological: CN II-XII intact - Psychiatric Psychiatric: cooperative - Constitutional Vitals: Temp Pulse Resp BP Pulse Ox 97.5 F L 75 18 155/93 96 10/03/19 12:27 10/03/19 13:00 10/03/19 12:27 10/03/19 12:27 10/03/19 04:05 Plan Activity: advance as tolerated, fall precautions Diet: low fat Special Instructions: record daily weights, record daily BP diary, smoking cessation Additional Instructions: needs to see cardiology for an event monitor. This is highly recommended Follow up with: PRIMARY CAREMD [Primary Care Provider] - 7 Days SHANDA MCCARTNEY MD [Staff Physician] - 7 Days SINGH LEVIN MD [Staff Physician] - 7 Days Prescriptions: AtorvaSTATin [Lipitor] 80 mg PO QHS #60 tablet amLODIPine 10 mg PO DAILY #30 tab hydrALAZINE [Apresoline TAB] 100 mg PO Q8HR #90 tab Aspirin [Aspirin BABY CHEW TAB] 81 mg PO QDAY #30 tab.chew hydroCHLOROthiazide [HCTZ] 25 mg PO QDAY #30 tablet NIFEdipine XL [Procardia Xl] 30 mg PO QDAY #30 tablet
== END 2019-10-03 19:20 | disposition home or self-care (01) | DRG 65 ==
LOC: ED 19:04 → 4A 21:47 → INTOOBSV 21:47 → OBSVTOIN 10-02 15:09
PROVIDERS: ADMIT Internal Medicine Geriatric Medicine; ATTEND Internal Medicine
DX: I63.9 Cerebral infarction, unspecified (principal); G81.91 Hemiplegia, unspecified affecting right dominant side; I16.0 Hypertensive urgency; I10 Essential (primary) hypertension; E78.5 Hyperlipidemia, unspecified; E86.0 Dehydration; F17.210 Nicotine dependence, cigarettes, uncomplicated; Z91.14 Patient's other noncompliance with medication regimen; Z79.82 Long term (current) use of aspirin; Z71.6 Tobacco abuse counseling; Z79.899 Other long term (current) drug therapy
CPT/HCPCS: 36415; 70450; 70544; 70551; 72141; 80048; 80061; 82550; 82553; 82607; 82747; 84484; 85025; 85610; 85652; 85670; 85730; 93005; 93010; 93306; 93880; 96374; 99406; G0378; A9270-GY; J0360; J1644; J7030